=== PATIENT | male | born 1965 | race Caucasian/White ===

== ENCOUNTER 2024-12-20 21:29 | Inpatient (IN) | payer MEDICAID, SELFPAY ==
--- NOTE | 2024-12-20 21:43 | CT_ITS ---
PROCEDURE INFORMATION: Exam: CT Left Lower Extremity With Contrast, Foot Exam date and time: 12/20/2024 10:48 PM Age: 59 years old Clinical indication: Cellulitis; Calf and foot; Left; Additional info: Cellullitis, abscess TECHNIQUE: Imaging protocol: CT of the left lower extremity with intravenous contrast was performed. Exam focused on the foot. Radiation optimization: All CT scans at this facility use at least one of these dose optimization techniques: automated exposure control; mA and/or kV adjustment per patient size (includes targeted exams where dose is matched to clinical indication); or iterative reconstruction. Contrast material: ISOVUE; Contrast volume: 120 ml; Contrast route: IV; COMPARISON: CT LOWER LEG LT W CON 12/20/2024 10:48 PM FINDINGS: Bones/joints: No acute fracture or dislocation. Periosteal thickening or erosive changes. No joint effusion. Soft tissues: Open wound with complex fluid collection/developing abscess along lateral ankle extending to lateral malleolus and possibly into lateral ankle mortise, measuring 2.3 x 3.2 x 4.7 cm (series 11, image 168). Irregular subcutaneous and cutaneous stranding most pronounced in calf, ankle, foot. IMPRESSION: 1. Complex fluid collection/developing abscess along the lateral ankle extending to lateral malleolus and ankle mortise. Although no obvious CT criteria for osteomyelitis and possible septic joint, suspect low-grade osteomyelitis. 2. Diffuse calf, ankle/foot cellulitis.
--- NOTE | 2024-12-20 21:43 | CT_ITS ---
PROCEDURE INFORMATION: Exam: CT Left Lower Extremity With Contrast, Leg Exam date and time: 12/20/2024 10:48 PM Age: 59 years old Clinical indication: Cellulitis; Calf; Left; Additional info: Cellulitis, abscess lateral foot and leg TECHNIQUE: Imaging protocol: CT of the left lower extremity with intravenous contrast was performed. Exam focused on the lower leg. Radiation optimization: All CT scans at this facility use at least one of these dose optimization techniques: automated exposure control; mA and/or kV adjustment per patient size (includes targeted exams where dose is matched to clinical indication); or iterative reconstruction. Contrast material: ISOVUE; Contrast volume: 120 ml; Contrast route: IV; COMPARISON: CT FOOT LT W CON 12/20/2024 10:48 PM FINDINGS: Bones/joints: No acute fracture or dislocation. Periosteal thickening or erosive changes. No joint effusion. Soft tissues: Open wound with complex fluid collection/developing abscess along lateral ankle extending to lateral malleolus and possibly into lateral ankle mortise, measuring 2.3 x 3.2 x 4.7 cm (series 11, image 168). Irregular subcutaneous and cutaneous stranding most pronounced in calf, ankle, foot. IMPRESSION: 1. Complex fluid collection/developing abscess along the lateral ankle extending to lateral malleolus and ankle mortise. Although no obvious CT criteria for osteomyelitis and possible septic joint, suspect low-grade osteomyelitis. 2. Diffuse calf, ankle/foot cellulitis.
--- NOTE | 2024-12-20 21:46 | [facility].EDGENADL ---
Discharge Plan Disposition Patient Disposition: Admitted Clinical Impressions Clinical Impression: Sepsis, Cellulitis of left lower extremity from knee to ankle, Diabetes mellitus, new onset Discharge ED Provider: [facility] <SHIRA Quiñones - Last Filed: 12/20/24 22:03> General Chief complaint: Extremity Problem,Nontraumatic Stated complaint: AO 12/19/24 rat bite left leg,swollen,red Time Seen by Provider: 12/20/24 21:34 History of Present Illness HPI narrative: Patient presents with left lower extremity pain, redness, swelling. The swelling has been ongoing for several years however has become worse recently. Patient is under unable to identify a time when the increased swelling started. He reports yesterday he was sleeping and woke up with some bleeding and pain around his heel. He was concerned that he may have been bitten by a rat as they have a rat infestation in the home. He has not had any fevers or vomiting. MD complaint: Leg pain Onset (ago): year(s) Location: left and lower extremity Severity: severe Consistency: constant Relieving factors: none Exacerbating factors: none Associated symptoms: negative fever/chills or nausea/vomiting Related Data Allergies Allergy/AdvReac Type Severity Reaction Status Date / Time No Known Allergies Allergy Verified 12/20/24 21:54 PFS <SHIRA Quiñones - Last Filed: 12/20/24 22:03> [facility] Disclaimer: The information contained in this section may have been updated after the patient was seen, as this information can be updated by other users. Social History (Updated 12/20/24 @ 22:03 by SHIRA Quiñones) Smoking Status: Current every day smoker alcohol intake: never current occupational status: unemployed Travel in the last 8 weeks: None Have you lived/traveled outside US in past 30 days?: No Contact w/someone who lives/traveled outside US past 30 days?: No Exposure to someone with infectious disease in past 14 days?: No Do you have a fever (greater than 100.4 F or 38 C)?: No Have you tested positive for COVID-19: No Exposed to someone with COVID-19 in past 14 days?: No Do you have a sore throat?: No Do you have a cough?: No Do you have any weakness?: No Do you have any diarrhea?: No Are you experiencing any unusual bleeding?: No Do you have any muscle aches/pain?: No Do you have any abdominal pain?: No Are you experiencing loss of taste or smell?: No <SHIAR Quiñones - Last Filed: 12/20/24 22:03> ROS Obtained: Yes Systems reviewed as appropriate & no additional complaints except as documented Physical Exam <SHIRA Quiñones - Last Filed: 12/20/24 22:03> General General appearance: alert and in no apparent distress Head Head exam: atraumatic and normocephalic Eye Eye exam: Present normal appearance and EOMI Chest Chest inspection: Present symmetric chest wall rise Respiratory Respiratory exam: Present normal lung sounds bilaterally; Absent wheezes or stridor Cardiovascular Cardiovascular exam: Present regular rate and normal rhythm; Absent systolic murmur Extremities Exam Extremities exam: Present other (LLE has thickening of skin, significant edema, erythema, there is a 3 cm growth on the lateral lower leg. His lateral ankle has an area of purulent drainage and fluctuance. He has some bleeding/ opening of skin around lateral heel as well. DP pulse palpable.) Neurological Exam Neurological exam: Present alert and oriented X3 Psychiatric Psychiatric exam: Present normal affect and normal mood Skin Skin exam: Present warm, dry and intact Medical Decision Making <SHIRA Quiñones Last Filed: 12/20/24 22:03> Medical Records Screening: Per USPSTF and CDC recommendations, given the prevalence of disease in our region, it is our hospital?s policy to screen for HIV and viral Hepatitis for all patients aged 18 and over and those with ongoing risk factors. Antonio Inquiry Pt receiving controlled substance: No Vital Signs: 12/20/24 21:49 12/20/24 22:30 12/20/24 23:20 Temperature 98.3 F Temperature Source Oral Pulse Rate 107 H 111 H Pulse Rate [Radial] 115 H Respiratory Rate 16 17 15 Blood Pressure 121/79 116/66 Blood Pressure [Right Arm] 155/101 H Blood Pressure Mean Blood Pressure Mean [Right Arm] 119 Blood Pressure Position [Right Arm] Sitting 02 Sat by Pulse Oximetry 98 98 98 Oxygen Delivery Method Room Air 12/20/24 23:30 Temperature Temperature Source Pulse Rate 110 H Pulse Rate [Radial] Respiratory Rate 18 Blood Pressure 120/59 L Blood Pressure [Right Arm] Blood Pressure Mean 73 Blood Pressure Mean [Right Arm] Blood Pressure Position [Right Arm] 02 Sat by Pulse Oximetry 98 Oxygen Delivery Method Lab Data Lab Results 12/20/24 22:21: WBC 12.6 H, RBC 4.20 L, Hgb 11.8 L, Hct 36.4 L, MCV 86.7, MCH 28.1, MCHC 32.4, RDW 12.6, Plt Count 457 H, MPV 9.9, Neut % (Auto) 72.2, Lymph % (Auto) 15.7, Daniels % (Auto) 8.6, Eos % (Auto) 1.6, Baso % (Auto) 0.6, Neut # (Auto) 9.1 H, Lymph # (Auto) 2.0, Daniels # (Auto) 1.1 H, Eos # (Auto) 0.2, Baso # (Auto) 0.1, Sodium 135 L, Potassium 4.0, Chloride 99, Carbon Dioxide 19 L, Anion Gap 21.0 H, BUN 13, Creatinine 0.70, Estimated Creat Clear 99, Estimated GFR 115, Est GFR ( Amer) 140, Glucose 484 H*, Hemoglobin A1c 12.6 H, Lactate 2.2 H, Calcium 8.9, Total Bilirubin 0.4, AST 30, ALT 22, Alkaline Phosphatase 269 H, Total Protein 9.3 H, Albumin 3.0 L, Globulin 6.3 H, Albumin/Globulin Ratio 0.5 L 12/20/24 23:03: VBG pH 7.37, VBG pCO2 38.0, VBG pO2 42.7 H, VBG HCO3 21.5 L, VBG Total CO2 22.6 L, VBG O2 Saturation 77.8 H, VBG Base Excess -3.8 L, VBG Lactic Acid 3.3 H 12/20/24 22:21 12/20/24 22:21 Orders (Tests/Meds): ED MEDICATIONS Generic Name Dose Route Start Last Admin Trade Name Freq PRN Reason Stop Dose Admin Lactated Ringer's 1,850 mls @ 925 mls/hr 12/20/24 22:50 12/20/24 22:57 Lactated Ringer's 1000 Ml Bag 30 ml/kg infuse over 2 hr (1850 ml) 12/21/24 00:49 925 mls/hr IV Administration .Q2H ONE Sodium Chloride 10 ml 12/20/24 23:04 12/20/24 23:06 Sodium Chloride 0.9% 10ml Syr (Rad Only) IV 01/19/25 23:03 10 ml NEEDED PRN Administration Maintain IV Site Discontinued Medications Generic Name Dose Route Start Last Admin Trade Name Tom PRN Reason Stop Dose Admin Vancomycin HCl 1,500 mg/ 250 mls @ 125 mls/hr 12/20/24 22:12 12/20/24 22:49 Sodium Chloride IV 12/20/24 22:13 125 mls/hr ONCE ONE Administration Piperacillin Sod/Tazobactam 50 mls @ 100 mls/hr 12/20/24 22:11 12/20/24 22:27 Sod 3.375 gm/ Sodium Chloride IV 12/20/24 22:40 100 mls/hr ONCE ONE Administration Insulin Human Regular 10 unit 12/20/24 22:45 12/20/24 22:53 Insulin Human Regular 100 Units/Ml 10ml Vial IV 12/20/24 22:46 10 unit ONCE ONE Administration Iopamidol 120 ml 12/20/24 23:04 12/20/24 23:06 Iopamidol-370 (76%);100ml Bottle IV 12/20/24 23:05 120 ml ONCE ONE Administration ORDERS Category Date Time Status CT Tib/Fib LT w con Stat Cat Scan 12/20/24 21:[address] foot LT w con Stat Cat Scan 12/20/24 21:43 Taken Complete Blood Count Auto Diff Stat Lab 12/20/24 22:21 Completed Comprehensive Metabolic Panel Stat Lab 12/20/24 22:21 Completed Hemoglobin A1C Stat Lab 12/20/24 22:21 Completed Lactic Acid Stat Lab 12/20/24 22:21 Completed Blood Culture Stat Micro 12/20/24 22:21 Received Wound Culture and Gram Stain Stat Micro 12/20/24 23:57 Ordered VBG [Venous Blood Gas] Stat RT 12/20/24 23:03 Completed Medical Decision Narrative: In summary patient is a 59-year-old male who presents the emergency department for evaluation of leg pain and swelling. Patient is tachycardic and hypertensive upon arrival, afebrile. Edema, erythema and open wounds on the left lower extremity. Differential diagnosis includes cellulitis, abscess, sepsis, malignancy. Initial workup will be conducted with labs, CT lower extremity. Patient checked out to Dr. Degroot pending results. <Dmitri Degroot MD - Last Filed: 12/20/24 22:50> Vital Signs: 12/20/24 21:49 12/20/24 22:30 12/20/24 23:20 Temperature 98.3 F Temperature Source Oral Pulse Rate 107 H 111 H Pulse Rate [Radial] 115 H Respiratory Rate 16 17 15 Blood Pressure 121/79 116/66 Blood Pressure [Right Arm] 155/101 H Blood Pressure Mean Blood Pressure Mean [Right Arm] 119 Blood Pressure Position [Right Arm] Sitting 02 Sat by Pulse Oximetry 98 98 98 Oxygen Delivery Method Room Air 12/20/24 23:30 Temperature Temperature Source Pulse Rate 110 H Pulse Rate [Radial] Respiratory Rate 18 Blood Pressure 120/59 L Blood Pressure [Right Arm] Blood Pressure Mean 73 Blood Pressure Mean [Right Arm] Blood Pressure Position [Right Arm] 02 Sat by Pulse Oximetry 98 Oxygen Delivery Method Lab Data Lab Results 12/20/24 22:21: WBC 12.6 H, RBC 4.20 L, Hgb 11.8 L, Hct 36.4 L, MCV 86.7, MCH 28.1, MCHC 32.4, RDW 12.6, Plt Count 457 H, MPV 9.9, Neut % (Auto) 72.2, Lymph % (Auto) 15.7, Daniels % (Auto) 8.6, Eos % (Auto) 1.6, Baso % (Auto) 0.6, Neut # (Auto) 9.1 H, Lymph # (Auto) 2.0, Daniels # (Auto) 1.1 H, Eos # (Auto) 0.2, Baso # (Auto) 0.1, Sodium 135 L, Potassium 4.0, Chloride 99, Carbon Dioxide 19 L, Anion Gap 21.0 H, BUN 13, Creatinine 0.70, Estimated Creat Clear 99, Estimated GFR 115, Est GFR ( Amer) 140, Glucose 484 H*, Hemoglobin A1c 12.6 H, Lactate 2.2 H, Calcium 8.9, Total Bilirubin 0.4, AST 30, ALT 22, Alkaline Phosphatase 269 H, Total Protein 9.3 H, Albumin 3.0 L, Globulin 6.3 H, Albumin/Globulin Ratio 0.5 L 12/20/24 23:03: VBG pH 7.37, VBG pCO2 38.0, VBG pO2 42.7 H, VBG HCO3 21.5 L, VBG Total CO2 22.6 L, VBG O2 Saturation 77.8 H, VBG Base Excess -3.8 L, VBG Lactic Acid 3.3 H Orders (Tests/Meds): ED MEDICATIONS Generic Name Dose Route Start Last Admin Trade Name Tom PRN Reason Stop Dose Admin Lactated Ringer's 1,850 mls @ 925 mls/hr 12/20/24 22:50 12/20/24 22:57 Lactated Ringer's 1000 Ml Bag 30 ml/kg infuse over 2 hr (1850 ml) 12/21/24 00:49 925 mls/hr IV Administration .Q2H ONE Sodium Chloride 10 ml 12/20/24 23:04 12/20/24 23:06 Sodium Chloride 0.9% 10ml Syr (Rad Only) IV 01/19/25 23:03 10 ml NEEDED PRN Administration Maintain IV Site Discontinued Medications Generic Name Dose Route Start Last Admin Trade Name Freleo PRN Reason Stop Dose Admin Vancomycin HCl 1,500 mg/ 250 mls @ 125 mls/hr 12/20/24 22:12 12/20/24 22:49 Sodium Chloride IV 12/20/24 22:13 125 mls/hr ONCE ONE Administration Piperacillin Sod/Tazobactam 50 mls @ 100 mls/hr 12/20/24 22:11 12/20/24 22:27 Sod 3.375 gm/ Sodium Chloride IV 12/20/24 22:40 100 mls/hr ONCE ONE Administration Insulin Human Regular 10 unit 12/20/24 22:45 12/20/24 22:53 Insulin Human Regular 100 Units/Ml 10ml Vial IV 12/20/24 22:46 10 unit ONCE ONE Administration Iopamidol 120 ml 12/20/24 23:04 12/20/24 23:06 Iopamidol-370 (76%);100ml Bottle IV 12/20/24 23:05 120 ml ONCE ONE Administration ORDERS Category Date Time Status CT Tib/Fib LT w con Stat Cat Scan 12/20/24 21:[address] foot LT w con Stat Cat Scan 12/20/24 21:43 Taken Complete Blood Count Auto Diff Stat Lab 12/20/24 22:21 Completed Comprehensive Metabolic Panel Stat Lab 12/20/24 22:21 Completed Hemoglobin A1C Stat Lab 12/20/24 22:21 Completed Lactic Acid Stat Lab 12/20/24 22:21 Completed Blood Culture Stat Micro 12/20/24 22:21 Received Wound Culture and Gram Stain Stat Micro 12/20/24 23:57 Ordered VBG [Venous Blood Gas] Stat RT 12/20/24 23:03 Completed Medical Decision Narrative: In summary patient is a 59-year-old male who presents the emergency department for evaluation of leg pain and swelling. Patient is tachycardic and hypertensive upon arrival, afebrile. Edema, erythema and open wounds on the left lower extremity. Differential diagnosis includes cellulitis, abscess, sepsis, malignancy. Initial workup will be conducted with labs, CT lower extremity. Patient checked out to Dr. Degroot pending results. I independently examined and interviewed patient. He states that left lower extremity swelling has been getting worse over the past couple of years. States that today, 12/20, he noticed that he had some discomfort in the lateral aspect of his ankle and realized it was draining. Came in for further evaluation. No fevers, chills, nausea, vomiting, but left lower extremity has been red, swollen for years. No changes in that. States that he has no medical problems. No medication allergies. History obtained with patient and family at bedside. On arrival, chronically ill-appearing. Left lower extremity is very noticeably larger than the right. Chronic overlying edematous and woody skin changes. Nontender, patient does have a dorsalis pedis pulse and range of motion of his ankle and digits. Minimal sensation. On the lateral aspect of his malleolus, he does have a draining ulcer but appears to have straw-colored changes with application of pressure with no obvious, ramo purulence. Differential includes cellulitis, abscess, sepsis, malignancy, deep space infection, diabetic wound among others. Workup including labs and imaging was initiated. Only lab to return prior to handoff was patient's chemistry. He has an anion gap of 21, glucose of 484 and lactate of 2.2. Patient given ideal body weight sepsis bolus, started on vancomycin and Zosyn. Also given 10 units of insulin IV. Prior to rest of workup, care handed off to oncoming physician. MD Zane <[facility] MD - Last Filed: 12/21/24 00:27> Vital Signs: 12/20/24 21:49 12/20/24 22:30 12/20/24 23:20 Temperature 98.3 F Temperature Source Oral Pulse Rate 107 H 111 H Pulse Rate [Radial] 115 H Respiratory Rate 16 17 15 Blood Pressure 121/79 116/66 Blood Pressure [Right Arm] 155/101 H Blood Pressure Mean Blood Pressure Mean [Right Arm] 119 Blood Pressure Position [Right Arm] Sitting 02 Sat by Pulse Oximetry 98 98 98 Oxygen Delivery Method Room Air 12/20/24 23:30 Temperature Temperature Source Pulse Rate 110 H Pulse Rate [Radial] Respiratory Rate 18 Blood Pressure 120/59 L Blood Pressure [Right Arm] Blood Pressure Mean 73 Blood Pressure Mean [Right Arm] Blood Pressure Position [Right Arm] 02 Sat by Pulse Oximetry 98 Oxygen Delivery Method Lab Data Lab Results 12/20/24 22:21: WBC 12.6 H, RBC 4.20 L, Hgb 11.8 L, Hct 36.4 L, MCV 86.7, MCH 28.1, MCHC 32.4, RDW 12.6, Plt Count 457 H, MPV 9.9, Neut % (Auto) 72.2, Lymph % (Auto) 15.7, Daniels % (Auto) 8.6, Eos % (Auto) 1.6, Baso % (Auto) 0.6, Neut # (Auto) 9.1 H, Lymph # (Auto) 2.0, Daniels # (Auto) 1.1 H, Eos # (Auto) 0.2, Baso # (Auto) 0.1, Sodium 135 L, Potassium 4.0, Chloride 99, Carbon Dioxide 19 L, Anion Gap 21.0 H, BUN 13, Creatinine 0.70, Estimated Creat Clear 99, Estimated GFR 115, Est GFR ( Amer) 140, Glucose 484 H*, Hemoglobin A1c 12.6 H, Lactate 2.2 H, Calcium 8.9, Total Bilirubin 0.4, AST 30, ALT 22, Alkaline Phosphatase 269 H, Total Protein 9.3 H, Albumin 3.0 L, Globulin 6.3 H, Albumin/Globulin Ratio 0.5 L 12/20/24 23:03: VBG pH 7.37, VBG pCO2 38.0, VBG pO2 42.7 H, VBG HCO3 21.5 L, VBG Total CO2 22.6 L, VBG O2 Saturation 77.8 H, VBG Base Excess -3.8 L, VBG Lactic Acid 3.3 H Orders (Tests/Meds): ED MEDICATIONS Generic Name Dose Route Start Last Admin Trade Name Freleo PRN Reason Stop Dose Admin Lactated Ringer's 1,850 mls @ 925 mls/hr 12/20/24 22:50 12/20/24 22:57 Lactated Ringer's 1000 Ml Bag 30 ml/kg infuse over 2 hr (1850 ml) 12/21/24 00:49 925 mls/hr IV Administration .Q2H ONE Sodium Chloride 10 ml 12/20/24 23:04 12/20/24 23:06 Sodium Chloride 0.9% 10ml Syr (Rad Only) IV 01/19/25 23:03 10 ml NEEDED PRN Administration Maintain IV Site Discontinued Medications Generic Name Dose Route Start Last Admin Trade Name Tom PRN Reason Stop Dose Admin Vancomycin HCl 1,500 mg/ 250 mls @ 125 mls/hr 12/20/24 22:12 12/20/24 22:49 Sodium Chloride IV 12/20/24 22:13 125 mls/hr ONCE ONE Administration Piperacillin Sod/Tazobactam 50 mls @ 100 mls/hr 12/20/24 22:11 12/20/24 22:27 Sod 3.375 gm/ Sodium Chloride IV 12/20/24 22:40 100 mls/hr ONCE ONE Administration Insulin Human Regular 10 unit 12/20/24 22:45 12/20/24 22:53 Insulin Human Regular 100 Units/Ml 10ml Vial IV 12/20/24 22:46 10 unit ONCE ONE Administration Iopamidol 120 ml 12/20/24 23:04 12/20/24 23:06 Iopamidol-370 (76%);100ml Bottle IV 12/20/24 23:05 120 ml ONCE ONE Administration ORDERS Category Date Time Status CT Tib/Fib LT w con Stat Cat Scan 12/20/24 21:[address] foot LT w con Stat Cat Scan 12/20/24 21:43 Taken Complete Blood Count Auto Diff Stat Lab 12/20/24 22:21 Completed Comprehensive Metabolic Panel Stat Lab 12/20/24 22:21 Completed Hemoglobin A1C Stat Lab 12/20/24 22:21 Completed Lactic Acid Stat Lab 12/20/24 22:21 Completed Blood Culture Stat Micro 12/20/24 22:21 Received Wound Culture and Gram Stain Stat Micro 12/20/24 23:57 Ordered VBG [Venous Blood Gas] Stat RT 12/20/24 23:03 Completed Medical Decision Narrative: In summary patient is a 59-year-old male who presents the emergency department for evaluation of leg pain and swelling. Patient is tachycardic and hypertensive upon arrival, afebrile. Edema, erythema and open wounds on the left lower extremity. Differential diagnosis includes cellulitis, abscess, sepsis, malignancy. Initial workup will be conducted with labs, CT lower extremity. Patient checked out to Dr. Degroot pending results. I independently examined and interviewed patient. He states that left lower extremity swelling has been getting worse over the past couple of years. States that today, 12/20, he noticed that he had some discomfort in the lateral aspect of his ankle and realized it was draining. Came in for further evaluation. No fevers, chills, nausea, vomiting, but left lower extremity has been red, swollen for years. No changes in that. States that he has no medical problems. No medication allergies. History obtained with patient and family at bedside. On arrival, chronically ill-appearing. Left lower extremity is very noticeably larger than the right. Chronic overlying edematous and woody skin changes. Nontender, patient does have a dorsalis pedis pulse and range of motion of his ankle and digits. Minimal sensation. On the lateral aspect of his malleolus, he does have a draining ulcer but appears to have straw-colored changes with application of pressure with no obvious, ramo purulence. Differential includes cellulitis, abscess, sepsis, malignancy, deep space infection, diabetic wound among others. Workup including labs and imaging was initiated. Only lab to return prior to handoff was patient's chemistry. He has an anion gap of 21, glucose of 484 and lactate of 2.2. Patient given ideal body weight sepsis bolus, started on vancomycin and Zosyn. Also given 10 units of insulin IV. Prior to rest of workup, care handed off to oncoming physician. MD Maine Degroot MD: I assumed care of the patient at the time of handoff from the prior provider. On reassessment patient remains hemodynamically stable, mildly tachycardic. Blood gas shows no acidosis to suggest DKA. Blood sugar in the 200s after [address] imaging was independently interpreted by me and shows significant edema but does not show any gas to suggest necrotizing infection. No obvious bony cortical defect to suggest osteomyelitis. I considered transfer, but given patient does not require emergent surgery for necrotizing infection I think patient can be managed here. Interactive discussion was had with the hospitalist on-call for admission. I was consulted by the YARIEL, and we discussed the complexity of the problems being addressed. I approved the treatment and management plan for this patient?s care in the Emergency Department, thus performing a substantive portion of the medical decision making. Jam Grove MD Critical Care <SHIRA Quiñones - Last Filed: 12/20/24 22:03> Critical Care Time Critical Care Time: No
[2024-12-20 21:49] VITALS: BP 155/101; PULSE 115; RESP 16; TEMP 36.8; O2SAT 98; BMI 49.9
[2024-12-20] MEDS: PIPERACILLIN/TAZO 3.375 GM in 0.9 % SODIUM CHLORIDE 50 ML IV (22:27)
[2024-12-20 22:30] VITALS: BP 121/79; PULSE 107; RESP 17; O2SAT 98
[2024-12-20 22:34] LABS: Chloride 99 mmol/L (98-107); Sodium 135 mmol/L (136-145)
[2024-12-20 22:37] LABS: Alanine Aminotransferase 22 U/L (12-78); Albumin/Globulin Ratio 0.5 (1.1-1.8); Alkaline Phosphatase 269 U/L (38-126); Aspartate Amino Transferase 30 U/L (17-59); Bilirubin,Total 0.4 mg/dl (0.2-1.3); Blood Urea Nitrogen 13 mg/dl (9-20); Calcium 8.9 mg/dl (8.4-10.2); Carbon Dioxide 19 mmol/L (22.0-30.0); Creatinine Clearance Estimated 99 mL/min (50-200); Estimated Glomerular Filt Rate 115 ml/min (>60); GFR (African American) 140 ML/MIN (>60); Globulin 6.3 g/dL (1.3-3.2); Total Protein,Serum 9.3 g/dl (6.3-8.2)
[2024-12-20 22:43] LABS: Lactic Acid 2.2 mmol/L (0.7-2.1)
[2024-12-20 22:44] LABS: Glucose 484 mg/dl (74-100)
--- NOTE | 2024-12-20 22:44 | PC.NURSE ---
Critical glucose result received from lab of 484. aware
[2024-12-20 22:48] LABS: Basophils # 0.1 K/mm3 (0-0.2); Basophils % 0.6 % (0.1-2.0); Eosinophils # 0.2 K/mm3 (0.0-0.4); Eosinophils % 1.6 % (0.1-12.0); Hematocrit 36.4 % (42.0-52.0); Hemoglobin 11.8 g/dL (14.1-18.0); Lymphocytes % 15.7 % (10-50); Mean Corpuscular HGB Conc 32.4 g/dL (31.8-35.4); Mean Corpuscular Hemoglobin 28.1 pg (27.0-31.2); Mean Corpuscular Volume 86.7 fl (80-94); Mean Platelet Volume 9.9 fl (7.4-10.4); Monocytes # 1.1 K/mm3 (0.1-1.0); Monocytes % 8.6 % (1.7-9.3); Neutrophils # 9.1 K/mm3 (1.8-7.8); Neutrophils % 72.2 % (37.0-80.0); Nucleated Red Blood Cells # 0 10^3/uL; Nucleated Red Blood Cells % 0 %; Platelet Count 457 K/mm3 (142-424); Red Cell Distribution Width 12.6 % (11.5-17.5); Red Cell Distribution Width-SD 39.8 fL; White Blood Count 12.6 K/mm3 (4.8-10.8)
[2024-12-20] MEDS: VANCOMYCIN HCL 1,500 MG in 0.9 % SODIUM CHLORIDE 250 ML 125 MG IV (22:49)
[2024-12-20] MEDS: INSULIN HUMAN REGULAR 100 UNITS/ML 10ML VIAL 10 UNIT IV (22:53)
[2024-12-20] MEDS: LACTATED RINGERS 1000ML 1,850 ML 925 ML IV (22:57)
[2024-12-20 23:03] LABS: Hemoglobin A1C 12.6 % (4.0-6.0)
[2024-12-20] MEDS: SODIUM CHLORIDE 0.9% 10ML SYR (RAD ONLY) 10 ML IV (23:06)
[2024-12-20] MEDS: IOPAMIDOL-370 (76%);100ML BOTTLE 120 ML IV (23:06)
[2024-12-20 23:20] VITALS: BP 116/66; PULSE 111; RESP 15; O2SAT 98
[2024-12-20 23:30] VITALS: BP 120/59; PULSE 110; RESP 18; O2SAT 98
[2024-12-20 23:34] LABS: VBG Base Excess -3.8 mmol/L (-2.4-2.3); VBG HCO3 21.5 mmol/L (23-30); VBG Oxygen Saturation 77.8 % (50-70); VBG PH 7.37 mmol/L (7.31-7.41); VBG PO2 42.7 mmol/L (28-40); VBG Total CO2 22.6 mmol/L (23-27)
[2024-12-20 23:35] LABS: Lactate Venous 3.3 mmol/L (0.4-2.0)
[2024-12-21] VITALS (22 sets, daily range): BP systolic 104–144; BP diastolic 59–98; PULSE 80–104; RESP 14–24; TEMP 36.7–37.6; O2SAT 91–100; BMI 35.9
--- NOTE | 2024-12-21 00:26 | PC.NURSE ---
Late entry: [id number] Attempt to call report, this RN was told to call back after the know wether or not to place patient in med-surg or step down
[2024-12-21 00:27] LABS: Acetone, Serum (Rapid) Small (None Detect)
--- NOTE | 2024-12-21 00:28 | PC.NURSE ---
Report given to Gasper on the floor. Reports that no admissions order have been plaved and they cannot come get patient until that order is placed.
--- NOTE | 2024-12-21 00:56 | PC.NURSE ---
Patient arrived to floor via stretcher from ED at 00:56.
[2024-12-21 01:30] LABS: Microscopic, Urine URINE MICROSCOPIC (MICROSCOPIC)
[2024-12-21 01:33] LABS: Appearance,Urine CLEAR (Clear); Blood, Urine 1+ (Negative); Color,Urine YELLOW (Yellow); Glucose,Urine (UA) 3+ (Negative); Ketones,Urine 2+ (Negative); Leukocyte Esterase,Urine Negative (Negative); Nitrate,Urine Negative (Negative); PH,Urine 5.5 (5.0-8.5); Protein,Urine TRACE (Negative); Urobilinogen,Urine 0.2 EU/dl (0.2)
[2024-12-21] MEDS: LACTATED RINGERS 1000ML 1,000 ML 100 ML IV ×2 (01:34→18:51)
[2024-12-21] MEDS: humaLOG 100 UNITS/ML 10ML VIAL (SSI) SUBCUT ×4 (01:34→20:30)
[2024-12-21 01:38] LABS: Bilirubin,Urine 1+ (Negative)
[2024-12-21 01:47] LABS: POC Glucose,Bedside 359 (70-110)
[2024-12-21 01:49] LABS: Bacteria,Urine Trace /lpf; Squamous Epithelial Cell,Urine Occasional #/hpf (0-5)
[2024-12-21 02:26] LABS: Reflex Lactic Add Lactic Reflex
[2024-12-21 02:52] LABS: Lactic Acid Follow Up (RFLX 1) 1.9 mmol/L (0.7-2.1)
--- NOTE | 2024-12-21 02:58 | P.HP_ITS ---
<Statement entered by Kevin Lund MD - 12/21/24 11:42> Personally evaluated patient and agree with the plan of care outlined by the METEOROLOGICAL TECHNICIAN. History of Present Illness *Admission Date: 12/21/24 *Reason for visit:: Lower extremity wound *History of present illness: A 59-year-old male with past medical history of hypertension, has not seen a physician since 2016, came to the emergency department for evaluation of left lower extremity pain and swelling, possibly triggered by a rat bite. The patient reports that left lower extremity swelling has been progressively worsening over the past couple of years with scaling skin texture. He states that today, December 20, he noticed discomfort in the lateral aspect of his left ankle and observed drainage from the area, prompting further evaluation. He notes the swelling and redness in his left leg have been chronic for years, with no recent changes in these findings, but believes the current draining ulcer may be related to a rat bite as home currently has rodent issue but does not recall being bitten. He denies fevers, chills, nausea, or vomiting. He reports no medication allergies. The history was obtained through interactive discussion with the patient and family at bedside, and the patient is deemed reliable. On examination, the patient is mildly tachycardic with a rate of 104, BP of 125/76, afebrile, alert, and oriented. Vital signs are not fully specified but indicate tachycardia and hypertension. Physical exam reveals a chronically ill- appearing male with a left lower extremity significantly larger than the right, exhibiting chronic overlying edematous and woody skin changes. The left leg is nontender, with a palpable dorsalis pedis pulse, intact range of motion in the ankle and digits, and minimal sensation. On the lateral malleolus, there is a draining ulcer with straw-colored fluid upon pressure, without obvious ramo purulence. The right lower extremity is unremarkable, and no other focal findings are noted. Diagnostic workup includes labs and a planned CT of the lower extremity, though only the chemistry panel returned prior to handoff. Labs are significant for hyperglycemia (glucose 484 mg/dL), elevated anion gap (21), low carbon dioxide (19 mmol/L), mildly elevated lactate (2.2 mmol/L), low albumin (3.0 g/dL), elevated total protein (9.3 g/dL), elevated globulin (6.3 g/dL), and elevated alkaline phosphatase (269 U/L). Renal function is normal (creatinine 0.70 mg/dL, GFR 115 mL/min/1.73m?). HgbA1c 12.6. Mild leukocytosis. Urinalysis pending Treatments implemented in the emergency department include an ideal body weight- based sepsis fluid bolus with normal saline, initiation of intravenous vancomycin and piperacillin-tazobactam (Zosyn) for suspected infection, and 10 units of intravenous insulin to address hyperglycemia. [facility] Disclaimer: The information contained in this section may have been updated after the patient was seen, as this information can be updated by other users. Family History Mother Family history of cancer Family history of myocardial infarction Father Family history of stroke Social History Smoking Status: Current every day smoker alcohol intake: never current occupational status: unemployed Travel in the last 8 weeks: None Have you lived/traveled outside [place] in past 30 days?: No Contact w/someone who lives/traveled outside US past 30 days?: No Exposure to someone with infectious disease in past 14 days?: No Do you have a fever (greater than 100.4 F or 38 C)?: No Have you tested positive for COVID-19: No Exposed to someone with COVID-19 in past 14 days?: No Do you have a sore throat?: No Do you have a cough?: No Do you have any weakness?: No Do you have any diarrhea?: No Are you experiencing any unusual bleeding?: No Do you have any muscle aches/pain?: No Do you have any abdominal pain?: No Are you experiencing loss of taste or smell?: No Other Medical History Have you received the Flu Vaccine for this season: No (Declines) Have you received the Pneumonia Vaccine: No (Declines) Review of Systems Review of Systems Review of systems (narrative): 13 point review systems negative except as listed in HPI Meds Home Medications and Allergies New Prescriptions to Start Prescriptions: Allergies Allergy/AdvReac Type Severity Reaction Status Date / Time No Known Allergies Allergy Verified 12/20/24 21:54 Exam Data for Last 24 hours Vital signs and Labs for Last 24 Hours: Temp Pulse Resp BP Pulse Ox O2 Del Method 98.3 F 104 H 20 125/76 100 Room Air 12/21/24 01:00 12/21/24 01:00 12/21/24 01:00 12/21/24 01:00 12/21/24 01:00 12/21/24 01:00 Laboratory Results - last 24 hr 12/20/24 22:21: WBC 12.6 H, RBC 4.20 L, Hgb 11.8 L, Hct 36.4 L, MCV 86.7, MCH 28.1, MCHC 32.4, RDW 12.6, Plt Count 457 H, MPV 9.9, Neut % (Auto) 72.2, Lymph % (Auto) 15.7, [place] % (Auto) 8.6, Eos % (Auto) 1.6, Baso % (Auto) 0.6, Neut # (Auto) 9.1 H, Lymph # (Auto) 2.0, [place] # (Auto) 1.1 H, Eos # (Auto) 0.2, Baso # (Auto) 0.1, Sodium 135 L, Potassium 4.0, Chloride 99, Carbon Dioxide 19 L, Anion Gap 21.0 H, BUN 13, Creatinine 0.70, Estimated Creat Clear 99, Estimated GFR 115, Est GFR ( Amer) 140, Glucose 484 H*, Hemoglobin A1c 12.6 H, Lactate 2.2 H, Calcium 8.9, Total Bilirubin 0.4, AST 30, ALT 22, Alkaline Phosphatase 269 H, Total Protein 9.3 H, Albumin 3.0 L, Globulin 6.3 H, Albumin/Globulin Ratio 0.5 L 12/20/24 23:03: VBG pH 7.37, VBG pCO2 38.0, VBG pO2 42.7 H, VBG HCO3 21.5 L, VBG Total CO2 22.6 L, VBG O2 Saturation 77.8 H, VBG Base Excess -3.8 L, VBG Lactic Acid 3.3 H 12/21/24 01:20: Urine Color Yellow, Urine Appearance Clear, Urine pH 5.5, Ur Specific [place] 1.010, Urine Protein Trace, Urine Glucose (UA) 3+, Urine Ketones 2+, Urine Blood 1+ A, Urine Nitrate Negative, Urine Bilirubin 1+ A, Urine Urobilinogen 0.2, Ur Leukocyte Esterase Negative, Urine RBC 3-5, Urine WBC None, Ur Squamous Epith Cells Occasional, Urine Bacteria Trace 12/21/24 01:23: POC Glucose 359 H* 12/21/24 02:38: Lactate 1.9 12/21/24 : Acetone Level Small I & O for Last 24 hours: Intake & Output 12/18/24 12/19/24 12/20/24 12/21/24 23:59 23:59 23:59 23:59 Output Total 600 / 600 Balance -600 / -600 Weight 136.078 kg 97.795 kg Microbiology Reports for the Last 24 Hours: Microbiology 12/20/24 01:12 Leg,Left Gram Stain - Final Constitutional Constitutional: no acute distress, morbidly obese, chronically ill appearing and disheveled *Routine HEENT Exam Head: Present normocephalic Eye: Present EOMI and PERRL ENT: Present mucous membranes moist *Routine Neck Exam Neck: Present supple; Absent lymphadenopathy *Routine Respiratory Exam Respiratory: Present CTA bilaterally *Routine Cardiovascular Exam Cardiovascular: Present RRR *Routine Abdominal Exam Abdominal: Present soft and normoactive bowel sounds; Absent tenderness *Routine Rectal Exam Rectal:: deferred *Routine Genitalia Exam Genitalia:: deferred *Routine Extremities Exam Extremities: Present edema (Left lower extremity); Absent cyanosis or clubbing *Routine Skin Exam Skin: Present warm, wounds (Left malleolus 2 x 2) and cracked; Absent rash *Routine Neurological Exam Neurological: Present alert and oriented X3 Assessment and Plan *Assessment and plan (1) Diabetes mellitus, new onset: Status: Acute Category: Medical Code(s): E11.9 - Type 2 diabetes mellitus without complications (2) Cellulitis of left lower extremity from knee to ankle: Status: Acute Category: Medical Code(s): L03.116 - Cellulitis of left lower limb (3) Sepsis: Status: Acute Qualifiers: Sepsis acute organ dysfunction status: with acute organ dysfunction Severe sepsis shock status: without septic shock Category: Medical Code(s): A41.9 - Sepsis, unspecified organism (4) Obesity: Status: Acute Category: Medical Code(s): E66.9 - Obesity, unspecified (5) Poor dentition: Status: Acute Category: Medical Code(s): K08.9 - Disorder of teeth and supporting structures, unspecified Plan * Left Lower Extremity Abscess and Cellulitis, Possible Rat Bite-Related Infection: New draining ulcer on the lateral malleolus with straw-colored fluid, chronic edema, and CT showing a complex fluid collection/developing abscess extending to the lateral malleolus/ankle mortise and diffuse calf/ankle/foot cellulitis, allegedly triggered by a rat bite, raising concern for Streptobacillus moniliformis, Spirillum minus, or polymicrobial infection. * Continue vancomycin 1 g IV every 12 hours and piperacillin-tazobactam (Zosyn) 3.375 g IV every 6 hours for broad-spectrum coverage of cellulitis and abscess, including gram-positive (e.g., MRSA) and gram-negative organisms. * Consider doxycycline 100 mg IV every 12 hours to cover rat-bite fever pathogens if score suggests * Obtain wound culture from ulcer drainage * Consult surgery orthopedic for evaluation of abscess and possible incision/drainage, given CT findings. * Elevate left leg to reduce edema; apply non-adherent dressing to ulcer, changing every 12 hours. * Monitor for systemic symptoms (fever, arthralgias, rash) suggestive of rat- bite fever * Suspected Low-Grade Osteomyelitis: CT suggesting possible low-grade osteomyelitis in the lateral malleolus/ankle mortise, despite no definitive criteria, in the context of a chronic ulcer and abscess. * Consult orthopedic surgery as above for possible bone biopsy or debridement if osteomyelitis confirmed. * Order MRI lower extremity with contrast to further evaluate for osteomyelitis or septic joint, pending surgical input. * Continue vancomycin and Zosyn as above, adequate for early osteomyelitis coverage. * Monitor for worsening pain, swelling, or joint limitation every 8 hours. * Hyperglycemia (Glucose 484 mg/dL) with Anion Gap Acidosis: Severe hyperglycemia with anion gap (21), low bicarbonate (21.5 mmol/L), 3+ glucose and 2+ ketones on urinalysis, and negative serum acetone, not suggestive of extreme ketoacidosis * Initiate sliding scale insulin * Monitor glucose every 6 hours * Consult endocrinology for inpatient diabetes management and discharge regimen (likely basal-bolus insulin given severity). * Continue IV fluid hydration * Educate patient on potential diabetes diagnosis and need for ongoing monitoring. * Sepsis (Lactate 3.3 mmol/L, Leukocytosis, Tachycardia): Elevated lactate, WBC 12.6 x10?/?L (neutrophils 9.1 x10?/?L), and tachycardia with confirmed infection (abscess, cellulitis), meeting sepsis criteria, though afebrile and stable post-fluid bolus. * Continue vancomycin, Zosyn, and doxycycline as above for infectious source (abscess, cellulitis, possible osteomyelitis). * Monitor lactate every 4?6 hours until <2 mmol/L; administer additional 30 mL/kg normal saline bolus if lactate remains >3 mmol/L. * Check blood cultures (drawn prior to antibiotics) for growth, including evaluation for Streptobacillus if rat-bite fever suspected. * Monitor vital signs every 4 hours, including heart rate and blood pressure. * Admit to hospital medicine service with telemetry for sepsis and infection monitoring. * Chronic Venous Insufficiency (Presumed): Chronic left leg edema with woody skin changes and ulcer, likely due to venous stasis given years-long history, now complicated by infection. * Order venous Doppler ultrasound of left lower extremity to evaluate for chronic venous insufficiency or thrombosis, despite palpable pulses. * Consider consult vascular surgery for chronic edema and ulcer management in the context of venous disease. * Initiate compression therapy (e.g., multilayer wrap) once infection is controlled, per wound care guidance. * Monitor for worsening edema or new ulcers during admission. * Elevated Globulin and Alkaline Phosphatase: Elevated globulin (6.3 g/dL), low albumin/globulin ratio (0.5), and alkaline phosphatase (268 U/L), suggesting possible chronic inflammatory, infectious (e.g., chronic osteomyelitis), or neoplastic process * Recheck liver function tests in 24 hours to trend alkaline phosphatase; consider liver ultrasound if rising or infection ruled out. * Monitor for systemic symptoms * Dehydration and Electrolyte Abnormalities: Low carbon dioxide (19 mmol/L), mild acidosis (bicarbonate 21.5 mmol/L), and elevated lactate, likely due to hyperglycemia, sepsis, and chronic edema-related fluid shifts, with normal renal function (creatinine 0.70 mg/dL). * Continue fluid as above to correct dehydration and acidosis. * Recheck comprehensive metabolic panel and VBG in 12 hours to monitor CO2, anion gap, and glucose. * Monitor urine output every 4 hours, targeting >0.5 mL/kg/hour. Additional Orders: * Admit to hospital medicine service (consider ICU if DKA confirmed or lactate rises) for sepsis, hyperglycemia, and infection management. * Maintain continuous telemetry and pulse oximetry due to tachycardia and sepsis risk. * Check vital signs every 4 hours, including [id number] glucose. * Offer acetaminophen 650 mg oral every 6 hours as needed for pain, avoiding NSAIDs due to renal and ulcer concerns. * Educate patient and family on infection, potential diabetes, and rat bite complications. * Consult medical social worker, PT eval and wound, orthopedic surgery if osteomyelitis confirmed
[2024-12-21] MEDS: ACETAMINOPHEN 325MG TAB 650 MG PO (05:10)
[2024-12-21] MEDS: PIPERCILLIN/TAZO 3.375 GM in 0.9 % SODIUM CHLORIDE 50 ML IV (05:19)
[2024-12-21 05:40] LABS: POC Glucose,Bedside 194 (70-110)
[2024-12-21 06:34] LABS: Basophils # 0.1 K/mm3 (0-0.2); Basophils % 0.5 % (0.1-2.0); Eosinophils # 0.2 K/mm3 (0.0-0.4); Eosinophils % 1.6 % (0.1-12.0); Hematocrit 30.3 % (42.0-52.0); Lymphocytes # 2.3 K/mm3 (0.7-4.5); Lymphocytes % 19.1 % (10-50); Mean Corpuscular HGB Conc 33.3 g/dL (31.8-35.4); Mean Corpuscular Hemoglobin 28.7 pg (27.0-31.2); Mean Corpuscular Volume 86.1 fl (80-94); Monocytes # 1.1 K/mm3 (0.1-1.0); Monocytes % 9.2 % (1.7-9.3); Neutrophils # 8.3 K/mm3 (1.8-7.8); Neutrophils % 68.5 % (37.0-80.0); Nucleated Red Blood Cells # 0 10^3/uL; Nucleated Red Blood Cells % 0 %; Platelet Count 400 K/mm3 (142-424); Red Blood Count 3.52 M/mm3 (4.60-6.20); Red Cell Distribution Width 12.7 % (11.5-17.5); Red Cell Distribution Width-SD 39.6 fL; White Blood Count 12.2 K/mm3 (4.8-10.8)
[2024-12-21 06:58] LABS: Chloride 103 mmol/L (98-107); Potassium 3.4 mmoL/L (3.5-5.1); Sodium 136 mmol/L (136-145)
[2024-12-21 07:01] LABS: Anion Gap 13.4 mEq/L (5-15); Blood Urea Nitrogen 10 mg/dl (9-20); Carbon Dioxide 23 mmol/L (22.0-30.0); Creatinine Clearance Estimated 275 mL/min (50-200); Estimated Glomerular Filt Rate 220 ml/min (>60); GFR (African American) 266 ML/MIN (>60); Phosphorous 2.6 mg/dl (2.5-4.5)
[2024-12-21 07:02] LABS: Glucose 183 mg/dl (74-100); Magnesium 1.3 mg/dl (1.6-2.3)
--- NOTE | 2024-12-21 07:23 | EXP.PHA.CONS ---
Pharmacy Consult Date: 12/21/24 Time: 07:23 Referring provider: DR. WELLER Reason for Consult:: VANCOMYCIN DOSING Allergies Allergy/AdvReac Type Severity Reaction Status Date / Time No Known Allergies Allergy Verified 12/20/24 21:54 Home Medications ?Medication ?Instructions ?Recorded ?Confirmed ?Type No Known Home Medications 12/21/24 12/21/24 History New Prescriptions to Start Prescriptions: Height: 1.65 m Weight: 97.795 kg Laboratory Results:: Laboratory Results - last 24 hr 12/20/24 22:21: WBC 12.6 H, RBC 4.20 L, Hgb 11.8 L, Hct 36.4 L, MCV 86.7, MCH 28.1, MCHC 32.4, RDW 12.6, Plt Count 457 H, MPV 9.9, Neut % (Auto) 72.2, Lymph % (Auto) 15.7, [place] % (Auto) 8.6, Eos % (Auto) 1.6, Baso % (Auto) 0.6, Neut # (Auto) 9.1 H, Lymph # (Auto) 2.0, [place] # (Auto) 1.1 H, Eos # (Auto) 0.2, Baso # (Auto) 0.1, Sodium 135 L, Potassium 4.0, Chloride 99, Carbon Dioxide 19 L, Anion Gap 21.0 H, BUN 13, Creatinine 0.70, Estimated Creat Clear 99, Estimated GFR 115, Est GFR ( Amer) 140, Glucose 484 H*, Hemoglobin A1c 12.6 H, Lactate 2.2 H, Calcium 8.9, Total Bilirubin 0.4, AST 30, ALT 22, Alkaline Phosphatase 269 H, Total Protein 9.3 H, Albumin 3.0 L, Globulin 6.3 H, Albumin/Globulin Ratio 0.5 L 12/20/24 23:03: VBG pH 7.37, VBG pCO2 38.0, VBG pO2 42.7 H, VBG HCO3 21.5 L, VBG Total CO2 22.6 L, VBG O2 Saturation 77.8 H, VBG Base Excess -3.8 L, VBG Lactic Acid 3.3 H 12/21/24 01:20: Urine Color Yellow, Urine Appearance Clear, Urine pH 5.5, Ur Specific [place] 1.010, Urine Protein Trace, Urine Glucose (UA) 3+, Urine Ketones 2+, Urine Blood 1+ A, Urine Nitrate Negative, Urine Bilirubin 1+ A, Urine Urobilinogen 0.2, Ur Leukocyte Esterase Negative, Urine RBC 3-5, Urine WBC None, Ur Squamous Epith Cells Occasional, Urine Bacteria Trace 12/21/24 01:23: POC Glucose 359 H* 12/21/24 02:38: Lactate 1.9 12/21/24 05:28: POC Glucose 194 H 12/21/24 05:29: WBC 12.2 H, RBC 3.52 L, Hgb 10.0 L D, Hct 30.3 L, MCV 86.1, MCH 28.7, MCHC 33.3, RDW 12.7, Plt Count 400, MPV 10.0, Neut % (Auto) 68.5, Lymph % (Auto) 19.1, [place] % (Auto) 9.2, Eos % (Auto) 1.6, Baso % (Auto) 0.5, Neut # (Auto) 8.3 H, Lymph # (Auto) 2.3, [place] # (Auto) 1.1 H, Eos # (Auto) 0.2, Baso # (Auto) 0.1, Sodium 136, Potassium 3.4 L, Chloride 103, Carbon Dioxide 23, Anion Gap 13.4, BUN 10, Creatinine 0.40 L D, Estimated Creat Clear 275, Estimated GFR 220, Est GFR ( Amer) 266 D, Glucose 183 H D, Calcium 8.0 L, Phosphorus 2.6, Magnesium 1.3 L 12/21/24 : Acetone Level Small Assessment and Plan Assessment and plan all Dx Assessment and Plan for all problems:: Pharmacokinetic dosing service Objective: Patient: Floor: Age: 59 yo Serum creatinine: 0.40 mg/dL Height: 65.0 Inches Weight (kg): 97.8 Assessment: IBW (kg): 61.50 Dosing wt(kg): 97.8 Estimated Creatinine clearance (ml/min): 130 Clearance limited to 130 ml/min to reduce risk of overdosing. CRCL method: Cockcroft and Gault using ibw(default). Drug selected: Vancomycin Loading dose (mg): Vd (liters): 78.2 (factor used: 0.8 L/kg) Miguel (hr-1): 0.112 Half life (hrs): 6.19 CLvanco=?? 8.758 L/hr Recommended dose: 2250 mg Interval: 12 hrs Infusion time (hrs): 2.0 Predicted peak (mcg/mL): 34.9 Predicted trough (mcg/mL): 11.39 Total body weight is being used for vancomycin dosing. Recommendations: Give Vancomycin 2250 mg q 12 hrs with an expected Cpeak of 34.9 mcg/ml and an expected Ctrough of 11.39 mcg/ml AUC 0-24 /DANIELLE Data: DANIELLE 0.5 mcg/mL:?? AUC/DANIELLE:? 1027.6 DANIELLE 1.0 mcg/mL:?? AUC/DANIELLE:? 513.8 --------- DANIELLE 1.5 mcg/mL:?? AUC/DANIELLE:? 342.5 DANIELLE 2.0 mcg/mL:?? AUC/DANIELLE:? 256.9 Thank you for the consult, will continue to follow. -ANA PAULA TROTTER, GLENISD
--- NOTE | 2024-12-21 08:00 | MR_ITS ---
PROCEDURE INFORMATION: Exam: MR Left Lower Extremity Without and With Contrast, Tibia Fibula Exam date and time: 12/21/2024 3:50 PM Age: 59 years old Clinical indication: Pain; Lower leg; Left; Prior surgery; Surgery date: Post-operative (0-2 days); Surgery type: I&d, earlier today; Eval for osteomyelitis; Additional info: Evaluation for osteomyelitis TECHNIQUE: Imaging protocol: Magnetic resonance imaging of the left lower extremity without and with contrast. Exam focused on the tibia and fibula. Contrast material: ISOVUE; Contrast volume: 19 ml; Contrast route: IV; COMPARISON: CT LOWER LEG LT W CON 12/20/2024 10:48 PM FINDINGS: Bones/joints: Osseous structures are intact. No abnormal signal changes or other evidence of osteomyelitis. There is there is a small focal area of signal alteration just beneath the lateral tibial plateau not well visualized presumed degenerative in nature. Soft tissues: There is diffuse superficial soft tissue swelling lower leg that mildly enhances following contrast administration with some accompanying skin thickening and increased vascularity consistent with the diffuse cellulitis. There is a postsurgical defect that has since been created lateral to the lateral malleolus the site of previously demonstrated fluid collection. There is no abscess or gas collection detected. Underlying muscle bundles and deep fascial planes are unremarkable. IMPRESSION: 1. Findings consistent with diffuse cellulitis left lower leg. No evidence of osteomyelitis. 2. Postsurgical changes lateral to the lateral malleolus. No residual abscess collection detected.
[2024-12-21] MEDS: VANCOMYCIN HCL 2,250 MG in 0.9 % SODIUM CHLORIDE 250 ML 125 MG IV ×2 (08:07→20:27)
--- NOTE | 2024-12-21 09:00 | CA_ITS ---
FINAL REPORT TECHNIQUE: Ultrasound images of the deep venous system were obtained from the left groin to the calf veins. CLINICAL HISTORY: edema, HTN, DM, smoker, obesity, cellulitis, rat bite to LLE. FINDINGS: The deep venous system is normally compressible. Normal flow is identified. Incidental note is made of a 3 cm left inguinal lymph node. IMPRESSION: No evidence of left lower extremity DVT. Reviewed, Interpreted and Dictated by Kiel Thurston MD Transcribed by Bethanie Guerin Authenticated and [facility]
--- NOTE | 2024-12-21 09:36 | P.CONS_ITS ---
History of Present Illness *Admission Date: 12/21/24 *History of present illness: A 59-year-old male with past medical history of hypertension, has not seen a physician since 2016, came to the emergency department for evaluation of left lower extremity pain and swelling, possibly triggered by a rat bite. The patient reports that left lower extremity swelling has been progressively worsening over the past couple of years with scaling skin texture. He states that today, December 20, he noticed discomfort in the lateral aspect of his left ankle and observed drainage from the area, prompting further evaluation. He notes the swelling and redness in his left leg have been chronic for years, with no recent changes in these findings, but believes the current draining ulcer may be related to a rat bite as home currently has rodent issue but does not recall being bitten. He denies fevers, chills, nausea, or vomiting. He reports no medication allergies. Treatments implemented in the emergency department include an ideal body weight- based sepsis fluid bolus with normal saline, initiation of intravenous vancomycin and piperacillin-tazobactam (Zosyn) for suspected infection, and 10 units of intravenous insulin to address hyperglycemia. CT scan of the left lower extremity obtained. Orthopedics consulted regarding treatment options left lower extremity [facility] Disclaimer: The information contained in this section may have been updated after the patient was seen, as this information can be updated by other users. Family History Mother Family history of cancer Family history of myocardial infarction Father Family history of stroke Social History Smoking Status: Current every day smoker alcohol intake: never current occupational status: unemployed Travel in the last 8 weeks: None Have you lived/traveled outside US in past 30 days?: No Contact w/someone who lives/traveled outside US past 30 days?: No Exposure to someone with infectious disease in past 14 days?: No Do you have a fever (greater than 100.4 F or 38 C)?: No Have you tested positive for COVID-19: No Exposed to someone with COVID-19 in past 14 days?: No Do you have a sore throat?: No Do you have a cough?: No Do you have any weakness?: No Do you have any diarrhea?: No Are you experiencing any unusual bleeding?: No Do you have any muscle aches/pain?: No Do you have any abdominal pain?: No Are you experiencing loss of taste or smell?: No Meds Home Medications and Allergies Home Medications ?Medication ?Instructions ?Recorded ?Confirmed ?Type No Known Home Medications 12/21/24 12/21/24 History New Prescriptions to Start Prescriptions: Allergies Allergy/AdvReac Type Severity Reaction Status Date / Time No Known Allergies Allergy Verified 12/20/24 21:54 Ortho Exam (Inpt) Vital signs and Labs for Last 24 Hours: Temp Pulse Resp BP Pulse Ox O2 Del Method 98.2 F 95 H 22 123/69 93 L Room Air 12/21/24 08:00 12/21/24 08:00 12/21/24 08:00 12/21/24 08:00 12/21/24 08:00 12/21/24 08:00 Laboratory Results - last 24 hr 12/20/24 22:21: WBC 12.6 H, RBC 4.20 L, Hgb 11.8 L, Hct 36.4 L, MCV 86.7, MCH 28.1, MCHC 32.4, RDW 12.6, Plt Count 457 H, MPV 9.9, Neut % (Auto) 72.2, Lymph % (Auto) 15.7, [place] % (Auto) 8.6, Eos % (Auto) 1.6, Baso % (Auto) 0.6, Neut # (Auto) 9.1 H, Lymph # (Auto) 2.0, [place] # (Auto) 1.1 H, Eos # (Auto) 0.2, Baso # (Auto) 0.1, Sodium 135 L, Potassium 4.0, Chloride 99, Carbon Dioxide 19 L, Anion Gap 21.0 H, BUN 13, Creatinine 0.70, Estimated Creat Clear 99, Estimated GFR 115, Est GFR ( Amer) 140, Glucose 484 H*, Hemoglobin A1c 12.6 H, Lactate 2.2 H, Calcium 8.9, Total Bilirubin 0.4, AST 30, ALT 22, Alkaline Phosphatase 269 H, Total Protein 9.3 H, Albumin 3.0 L, Globulin 6.3 H, Albumin/Globulin Ratio 0.5 L 12/20/24 23:03: VBG pH 7.37, VBG pCO2 38.0, VBG pO2 42.7 H, VBG HCO3 21.5 L, VBG Total CO2 22.6 L, VBG O2 Saturation 77.8 H, VBG Base Excess -3.8 L, VBG Lactic Acid 3.3 H 12/21/24 01:20: Urine Color Yellow, Urine Appearance Clear, Urine pH 5.5, Ur Specific [place] 1.010, Urine Protein Trace, Urine Glucose (UA) 3+, Urine Ketones 2+, Urine Blood 1+ A, Urine Nitrate Negative, Urine Bilirubin 1+ A, Urine Urobilinogen 0.2, Ur Leukocyte Esterase Negative, Urine RBC 3-5, Urine WBC None, Ur Squamous Epith Cells Occasional, Urine Bacteria Trace 12/21/24 01:23: POC Glucose 359 H* 12/21/24 02:38: Lactate 1.9 12/21/24 05:28: POC Glucose 194 H 12/21/24 05:29: WBC 12.2 H, RBC 3.52 L, Hgb 10.0 L D, Hct 30.3 L, MCV 86.1, MCH 28.7, MCHC 33.3, RDW 12.7, Plt Count 400, MPV 10.0, Neut % (Auto) 68.5, Lymph % (Auto) 19.1, [place] % (Auto) 9.2, Eos % (Auto) 1.6, Baso % (Auto) 0.5, Neut # (Auto) 8.3 H, Lymph # (Auto) 2.3, [place] # (Auto) 1.1 H, Eos # (Auto) 0.2, Baso # (Auto) 0.1, Sodium 136, Potassium 3.4 L, Chloride 103, Carbon Dioxide 23, Anion Gap 13.4, BUN 10, Creatinine 0.40 L D, Estimated Creat Clear 275, Estimated GFR 220, Est GFR ( Amer) 266 D, Glucose 183 H D, Calcium 8.0 L, Phosphorus 2.6, Magnesium 1.3 L 12/21/24 : Acetone Level Small I & O for Labs for Last 24 Hours: Intake & Output 12/18/24 12/19/24 12/20/24 12/21/24 23:59 23:59 23:59 23:59 Output Total 900 / 900 Balance -900 / -900 Weight 300 lb 215 lb 9.617 oz Microbiology Reports for the Last 24 Hours: Microbiology 12/20/24 01:12 Leg,Left Gram Stain - Final Head: Present normocephalic and atraumatic Comment:: Left lower extremity: There is diffuse swelling from the knee to the lower leg. Chronic appearing dry scaly skin. Ulceration on the most lateral aspect going up towards the head of the fibula with skin ulceration but no open wound. Left ankle area has open wound with purulent drainage. Results Labs 12/21/24 05:29 12/21/24 05:29 Labs: Abnormal lab results 12/20/24 12/20/24 12/21/24 Range/Units 22:21 23:03 01:20 WBC 12.6 H (4.8-10.8) K/mm3 RBC 4.20 L (4.60-6.20) M/mm3 Hgb 11.8 L (14.1-18.0) g/dL Hct 36.4 L (42.0-52.0) % Plt Count 457 H (142-424) K/mm3 Neut # (Auto) 9.1 H (1.8-7.8) K/mm3 [place] # (Auto) 1.1 H (0.1-1.0) K/mm3 VBG pO2 42.7 H (28-40) mmol/L VBG HCO3 21.5 L (23-30) mmol/L VBG Total CO2 22.6 L (23-27) mmol/L VBG O2 Saturation 77.8 H (50-70) % VBG Base Excess -3.8 L (-2.4-2.3) mmol/L VBG Lactic Acid 3.3 H (0.4-2.0) mmol/L Sodium 135 L (136-145) mmol/L Potassium (3.5-5.1) mmoL/L Carbon Dioxide 19 L (22.0-30.0) mmol/L Anion Gap 21.0 H (5-15) mEq/L Creatinine (0.66-1.25) mg/dl Glucose 484 H* (74-100) mg/dl POC Glucose (70-110) Hemoglobin A1c 12.6 H (4.0-6.0) % Lactate 2.2 H (0.7-2.1) mmol/L Calcium (8.4-10.2) mg/dl Magnesium (1.6-2.3) mg/dl Alkaline Phosphatase 269 H (38-126) U/L Total Protein 9.3 H (6.3-8.2) g/dl Albumin 3.0 L (3.5-5.0) g/dl Globulin 6.3 H (1.3-3.2) g/dL Albumin/Globulin Ratio 0.5 L (1.1-1.8) Urine Blood 1+ A (Negative) Urine Bilirubin 1+ A (Negative) 12/21/24 12/21/24 12/21/24 Range/Units 01:23 05:28 05:29 WBC 12.2 H (4.8-10.8) K/mm3 RBC 3.52 L (4.60-6.20) M/mm3 Hgb 10.0 L D (14.1-18.0) g/dL Hct 30.3 L (42.0-52.0) % Plt Count (142-424) K/mm3 Neut # (Auto) 8.3 H (1.8-7.8) K/mm3 [place] # (Auto) 1.1 H (0.1-1.0) K/mm3 VBG pO2 (28-40) mmol/L VBG HCO3 (23-30) mmol/L VBG Total CO2 (23-27) mmol/L VBG O2 Saturation (50-70) % VBG Base Excess (-2.4-2.3) mmol/L VBG Lactic Acid (0.4-2.0) mmol/L Sodium (136-145) mmol/L Potassium 3.4 L (3.5-5.1) mmoL/L Carbon Dioxide (22.0-30.0) mmol/L Anion Gap (5-15) mEq/L Creatinine 0.40 L D (0.66-1.25) mg/dl Glucose 183 H D (74-100) mg/dl POC Glucose 359 H* 194 H (70-110) Hemoglobin A1c (4.0-6.0) % Lactate (0.7-2.1) mmol/L Calcium 8.0 L (8.4-10.2) mg/dl Magnesium 1.3 L (1.6-2.3) mg/dl Alkaline Phosphatase (38-126) U/L Total Protein (6.3-8.2) g/dl Albumin (3.5-5.0) g/dl Globulin (1.3-3.2) g/dL Albumin/Globulin Ratio (1.1-1.8) Urine Blood (Negative) Urine Bilirubin (Negative) H & H 12/20/24 12/21/24 Range/Units 22:21 05:29 Hgb 11.8 L 10.0 L D (14.1-18.0) g/dL Hct 36.4 L 30.3 L (42.0-52.0) % All other labs normal. Assessment and Plan *Assessment and plan (1) Cellulitis of left lower extremity from knee to ankle: Status: Acute Category: Medical Code(s): L03.116 - Cellulitis of left lower limb (2) Diabetes mellitus, new onset: Status: Acute Category: Medical Code(s): E11.9 - Type 2 diabetes mellitus without complications (3) Sepsis: Status: Acute Qualifiers: Sepsis acute organ dysfunction status: with acute organ dysfunction S evere sepsis shock status: without septic shock Category: Medical Code(s): A41.9 - Sepsis, unspecified organism (4) Abscess of skin of left ankle: Status: Acute Category: Medical Code(s): L02.416 - Cutaneous abscess of left lower limb Plan Dressing taken down today. There is purulent drainage of the wound on the lateral aspect of the ankle. Significant lower extremity lymphedema and chronic scaling and swelling of the lower extremity. Patient is a poorly controlled diabetic has not had any medication for this. Unaware of how long he has been diabetic. Hemoglobin A1c significantly elevated 12.6. He is going to have wound healing issues for this particular situation. However acutely needs irrigation and debridement will place wound VAC to allow for healing of the wound bed. He will require MRI scan following I&D to evaluate for any changes of osteomyelitis of the fibula or ankle joint. Patient is n.p.o. therefore we will proceed with irrigation and sharp debridement left lower extremity today. Will obtain intraoperative cultures to drive antibiotics
[2024-12-21 09:46] LABS: Chol/HDL Ratio 5.1 (1-3.5); Cholesterol 96 mg/dl (140-200); HDL Cholesterol 19 mg/dl (40-60); Triglycerides 124 mg/dl (30-150); VLDL Cholesterol 25 mg/dL (0-40)
[2024-12-21 09:57] LABS: Direct LDL Cholesterol 44.22 mg/dL (100-129)
--- NOTE | 2024-12-21 10:25 | HMH.PTEV ---
Physical Therapy Evaluation Rehab PT IP Evaluation Start: 12/21/24 03:21 Freq: ONCE Status: Active Protocol: Document 12/21/24 08:45 MARY (Rec: 12/21/24 10:25 MARY [id number]) Subjective/History History History A 59-year-old male with past medical history of hypertension, has not seen a physician since 2015, came to the emergency department for evaluation of left lower extremity pain and swelling, possibly triggered by a rat bite. The patient reports that left lower extremity swelling has been progressively worsening over the past couple of years with scaling skin texture. He states that December 20, he noticed discomfort in the lateral aspect of his left ankle and observed drainage from the area. Pt currently lives independently at home with his adult son. He has ~4 steps to enter his home and does not currently use any AD. Subjective Subjective Pt presents alert and supine in bed this am. He states that he is willing to participate in therapy and walk around his room. Pt returned to bed for wound evaluation. [facility] How much help from another person do you currently need... Turning from your back to your side None while in a flat bed without using bedrails? Moving from lying on back to sitting on None the side of a flat bed without using bedrails? Moving to and from a bed to a chair ( None including a wheelchair)? Standing up from a chair using your arms None ? (e.g., wheelchair, bedside chair) Walking in hospital room? None Climbing 3-5 steps with a railing? None Mobility Score 24 Mobility Level [facility] Mobility Calculator Mobility 8 Walk 250 feet or more Rehab PT IP Eval Objective Appearance Patient Behavior Appropriate,Cooperative Patient Orientation Person,Place,Birthday,Month Difficulty following instructions none Speech Pattern Clear,Appropriate Ambulation Patient Able to Ambulate Yes Ambulation Observation IP General Gait Pattern Observation Wide Based Gait Ambulation Distance (feet) 25 Ambulation Assistive Device None Ambulation Ability Supervision/Stand by Balance Ability to Arise Able, w/o using arms Sitting Balance Steady, safe Standing Balance Steady, wide stance Dynamic Sitting Balance Ability Normal Dynamic Standing Balance Ability Normal Transfers Bed Transfer Ability Independent Sit to Stand Bed Transfer Ability Supervision/Stand by Rehab PT IP prob,goals,plan Problems Date of Evaluation: 12/21/24 Discharge Plan PT Discharge Plan Patient is currently indicated to return home once medically stable for d/c. Skilled acute therapy is not currently indicated as patient is independent with all mobility. Eval Complexity Eval Charge Codes 85420 - High Complexity PHYSICIAN CERTIFICATION: I certify the specified therapy services for Jonathan Mustapha Winn are required, authorized, and reviewed every 30 days.
--- NOTE | 2024-12-21 10:41 | SW/DCPLANNER ---
Addendum entered by Gali Ledbetter 12/24/24 09:41: CM has set patient up w/ outpatient wound care at [facility] for tomorrow 12/25/24 at 3PM. I have arranged [facility] for transport. Patient will discharge home today. Original Note: I spoke w/ this patient regarding plans once medically stable for discharge. I received a Care Management consult regarding rat infestation. Patient stated that he resides at home w/ his 35 year old son and his friend. Patient is able to ambulate independently, completes all ADLs and cooks/cleans for himself. Patient did confirm an issue w/ rats in the home but has been working on a solution w/ traps. Patient stated there are less rats in the home at this time. Patient confirmed that no children reside in the home and that he does currently have running water and electricity. I will continue to follow up w/ this patient to assist w/ any needs/new orders. Discharge date is unknown at this time.
--- NOTE | 2024-12-21 11:03 | HMH.PTWOUND ---
Rehab Inpt Wound Evaluation Rehab IP Wound Evaluation Start: 12/21/24 03:20 Freq: ONCE Status: Active Protocol: Document 12/21/24 10:42 MARY (Rec: 12/21/24 11:03 PHORASHI [id number]) Rehab PT Wound Assessment Subjective Subjective A 59-year-old male with past medical history of hypertension, has not seen a physician since 2015, came to the emergency department for evaluation of left lower extremity pain and swelling, possibly triggered by a rat bite. The patient reports that left lower extremity swelling has been progressively worsening over the past couple of years with scaling skin texture. He states that December 20, he noticed discomfort in the lateral aspect of his left ankle and observed drainage from the area. Pt currently lives independently at home with his adult son. He has ~4 steps to enter his home and does not currently use any AD. Pt presents with severe hyperkeratosis to L LE and L lateral ankle wound upon admission. Wound Left Lateral Ankle Wound Type unknown etiology Is This a Chronic Wound Yes Wound Length (cm) 2.3 Wound Width (cm) 2.2 Wound Depth (cm) 7.0 Wound Bed Appearance Yellow,Slough,Necrotic Percentage of Slough (%) 100 Wound Margins Description Indistinct Edema Type Non-Pitting Edema Appearance Hard,Open Sores Wound Drainage Description Purulent,Brown Drainage Amount Large Drainage Odor No Odor Wound Topical Solution/Irrigant Saline Irrigant Packing Type Gauze Pads Comment betadine soaked Primary Dressing Gauze Pad Wound Secondary Dressing Type Gauze Roll/Wrap Wound Debridement Method Gauze,Mechanical Wound Debridement Amount of Tissue Minimal Removed Dressing Change Patient Tolerance Tolerated Well Plan/Recommendation Comment Will await ortho recommendations for further conservative wound care vs surgery. Will follow and assist with wound care treatment as needed while pt remains adm to hospital. Eval Complexity Eval Charge Codes 06984 - High Complexity Aparicio-Adorno Wound Assessment Tool Assessment Wound size 2=Length x Width 4--<16 sq cm Wound depth 5=Full thickness skin loss with extensive destruction, tissue necrosis Wound edges 1=Indistinct, diffuse, none clearly visible Wound undermining 2=Undermining <2 cm in any area Necrotic tissue type 3=Loosely adherent yellow slough Necrotic tissue amount 5=75% to 100% of wound covered Exudate type 5=Purulent: thin or thick, opaque, barron/yellow, withour without odor Exudate amount 5=Large Skin color surrounding wound 2=Bright red &/or blanches to touch Peripheral tissue edema 5=Crepitus and/or pitting edema extends > or = 4 cm around wound Peripheral tissue induration 2=Induration,<2 cm around wound Granulation tissue 5=No granulation tissue present Epithelialization 5= < 25% wound covered Wound assessment total score 47 PHYSICIAN CERTIFICATION: I certify the specified therapy services for Jonathan Lakhanis are required, authorized, and reviewed every 30 days.
--- NOTE | 2024-12-21 12:01 | HMH.ITSTN ---
Went up to get patient for mri, while in patients room i received a call from 2nd floor stating that he was going to surgery and that the mri will be done after . His RN was in the room when i got the call and i told her that it could be today if not it will be done tomorrow.
[2024-12-21 12:15] LABS: POC Glucose,Bedside 235 (70-110)
--- NOTE | 2024-12-21 12:27 | EXP.ANES.CKL ---
[facility] Disclaimer: The information contained in this section may have been updated after the patient was seen, as this information can be updated by other users. Family History Mother Family history of cancer Family history of myocardial infarction Father Family history of stroke Social History Smoking Status: Current every day smoker alcohol intake: never substance use type: denies use current occupational status: unemployed Travel in the last 8 weeks: None [facility] Anesthesia Checklist Patient Identification Patient Identification: Arm Band Structural Data Admitted From: Home Planned Operative Procedure/s: I&D Left Foot Consent for Planned Operative Procedure(s) Verified: Yes Verified Documents: Surgical Consent and History and Physical NPO Status Verified Time NPO: 00:00 Additional verifications Anesthesia Reactions: No Airway Assessment Mallampati Score:: Class II C-Spine Mobility Assessed: Yes TMJ Mobility Assessed: Yes Dentition: Good Dentition Neurological Assessment Level of Consciousness: Awake, Alert and Appropriate Anesthesia Plan Anesthesia Risk discussed: Yes Anesthesia Plan: Verified ASA Class: III Anesthesia Type: General
[2024-12-21] MEDS: CEFAZOLIN 1GM VIAL 2 GM (13:18)
--- NOTE | 2024-12-21 14:14 | EXP.OP.NOTE ---
Date of procedure: 12/21/24 Pre-op Diagnosis:: Left ankle lower extremity open wound cellulitis abscess Post-op Diagnosis:: Same Procedure performed:: Irrigation sharp debridement 4 cm x 3 cm x 2 cm open wound left lateral ankle Surgeon:: Michael Kelley DO Director Of Outpatient Services(s):: Robert [place] CASE HARDENER:: Jonathan Harris Anesthesia: GETA Estimated blood loss (mL): 25 Operative findings:: Open wound abscess lateral ankle Gregory pus superior aspect of the wound with abscess Operative note:: Patient identified preoperatively. Left lower extremity marked with yes minus was transferred operative suite placed on the room by general anesthesia rivet bucker airway secured left lower extremity prepped and draped with a Betadine prep Of note patient has significant left lower extremity lymphedema and swelling also scaled roughened skin diffusely along the lower leg. The amount of swelling in the lower extremity is 3 times bigger than the contralateral side. There is open wound on the lateral aspect of the ankle with infected tissue and abscess. The open wound measured 4 cm x 3 cm x 2 cm deep. Sharp debridement with a knife and a rongeur was performed to remove all of the abnormal tissue in the bed of the wound over the lateral ankle. There is significant damage to the soft tissue with longstanding infection Rongeur was used to clean the wound. Pulsavac was utilized for irrigation of the wound exploration anteriorly in the aspect of the wound revealed abscess pus pocket. This was debrided and irrigated and suctioned. Cultures were taken of the wound and the tissue. Irrigation of the wound repeated. Attempts were then made for placement of a wound VAC. The VAC sponge was cut to proper dimensions and placed in the bed of the wound followed by a larger piece of sponge attempt was made for placement of the wound VAC this was made technically difficulty by the scaly nature of the lower extremity. It was impossible to get a suction without a leak. Multiple attempts were made for placement of the wound VAC but were not successful. Therefore wound was packed with Betadine soaked 4 x 4's followed by clean 4 x 4's followed by Curlex and Rickey bandage. Patient has significant lower extremity issues lymphedema scaling of the skin. Also of note patient will undergo MRI scan to rule out osteomyelitis of the lower extremity. There would not be a soft tissue envelope that was viable for below-knee amputation given the large amount of lymphedema and swelling and scaliness of the skin. We will try to allow this wound to heal continue with local wound measures make recommendations following MRI scan to rule out osteomyelitis. Condition: stable Disposition: PACU Complications:: None apparent
[2024-12-21 14:22] LABS: POC Glucose,Bedside 278 (70-110)
--- NOTE | 2024-12-21 14:47 | PC.NURSE ---
report given to DARIN English. Patient remains in surgery at this time, but after will go to room 207 med surg.
--- NOTE | 2024-12-21 14:51 | EXP.ANES.II ---
[facility] Anesthesia Record Part II Anesthesia Record Part II Discharge Time: 14:40 Destination: Surgical Day Care (OP Surgery) PACU nurse assessment reviewed?: Yes Patient Condition:: Good Anesthesia Complications:: None Swallowing reflex intact?: Yes Airway Patency: Patent Cyanosis?: No Blood Pressure: 133/72 SaO2: 93 Respiratory Rate: 16 Pulse Rate: 97 Temperature: 99.7 F Mental Status: Alert & Oriented Pain level:: 0 Nausea and/or vomitting:: None Intake, IV Amount: 0 Hydration: Adequate
--- NOTE | 2024-12-21 14:52 | HMH.ITSTN ---
Called and spoke with RN at 12:45 patient had just went down for surgery, will do CT after surgery per Dr. Lund
--- NOTE | 2024-12-21 15:34 | P.PN_ITS ---
Subjective *Date: 12/21/24 *Time: 15:34 Interval history: Patient lying in bed comfortably. No complaints. States it is what it is if he had to get an amputation. Exam Data for Last 24 hours Vital signs and Labs for Last 24 Hours: Temp Pulse Resp BP Pulse Ox O2 Del Method O2 Flow Rate 99.7 F H 97 H 16 133/72 93 L Nasal Cannula 2 12/21/24 14:40 12/21/24 14:40 12/21/24 14:52 12/21/24 14:40 12/21/24 14:40 12/21/24 14:40 12/21/24 14:40 Laboratory Results - last 24 hr 12/20/24 22:21: WBC 12.6 H, RBC 4.20 L, Hgb 11.8 L, Hct 36.4 L, MCV 86.7, MCH 28.1, MCHC 32.4, RDW 12.6, Plt Count 457 H, MPV 9.9, Neut % (Auto) 72.2, Lymph % (Auto) 15.7, [place] % (Auto) 8.6, Eos % (Auto) 1.6, Baso % (Auto) 0.6, Neut # (Auto) 9.1 H, Lymph # (Auto) 2.0, [place] # (Auto) 1.1 H, Eos # (Auto) 0.2, Baso # (Auto) 0.1, Sodium 135 L, Potassium 4.0, Chloride 99, Carbon Dioxide 19 L, Anion Gap 21.0 H, BUN 13, Creatinine 0.70, Estimated Creat Clear 99, Estimated GFR 115, Est GFR ( Amer) 140, Glucose 484 H*, Hemoglobin A1c 12.6 H, Lactate 2.2 H, Calcium 8.9, Total Bilirubin 0.4, AST 30, ALT 22, Alkaline Phosphatase 269 H, Total Protein 9.3 H, Albumin 3.0 L, Globulin 6.3 H, Albumin/Globulin Ratio 0.5 L 12/20/24 23:03: VBG pH 7.37, VBG pCO2 38.0, VBG pO2 42.7 H, VBG HCO3 21.5 L, VBG Total CO2 22.6 L, VBG O2 Saturation 77.8 H, VBG Base Excess -3.8 L, VBG Lactic Acid 3.3 H 12/21/24 01:20: Urine Color Yellow, Urine Appearance Clear, Urine pH 5.5, Ur Specific [place] 1.010, Urine Protein Trace, Urine Glucose (UA) 3+, Urine Ketones 2+, Urine Blood 1+ A, Urine Nitrate Negative, Urine Bilirubin 1+ A, Urine Urobilinogen 0.2, Ur Leukocyte Esterase Negative, Urine RBC 3-5, Urine WBC None, Ur Squamous Epith Cells Occasional, Urine Bacteria Trace 12/21/24 01:23: POC Glucose 359 H* 12/21/24 02:38: Lactate 1.9 12/21/24 05:28: POC Glucose 194 H 12/21/24 05:29: WBC 12.2 H, RBC 3.52 L, Hgb 10.0 L D, Hct 30.3 L, MCV 86.1, MCH 28.7, MCHC 33.3, RDW 12.7, Plt Count 400, MPV 10.0, Neut % (Auto) 68.5, Lymph % (Auto) 19.1, [place] % (Auto) 9.2, Eos % (Auto) 1.6, Baso % (Auto) 0.5, Neut # (Auto) 8.3 H, Lymph # (Auto) 2.3, [place] # (Auto) 1.1 H, Eos # (Auto) 0.2, Baso # (Auto) 0.1, Sodium 136, Potassium 3.4 L, Chloride 103, Carbon Dioxide 23, Anion Gap 13.4, BUN 10, Creatinine 0.40 L D, Estimated Creat Clear 275, Estimated GFR 220, Est GFR ( Amer) 266 D, Glucose 183 H D, Calcium 8.0 L, Phosphorus 2.6, Magnesium 1.3 L, Triglycerides 124, Cholesterol 96 L, LDL Cholesterol Direct 44.22 L, VLDL Cholesterol 25, HDL Cholesterol 19 L, Cholesterol/HDL Ratio 5.1 H 12/21/24 11:39: POC Glucose 235 H 12/21/24 14:15: POC Glucose 278 H 12/21/24 : Acetone Level Small I & O for Last 24 hours: Intake & Output 12/18/24 12/19/24 12/20/24 12/21/24 23:59 23:59 23:59 23:59 Intake Total 0 / 0 Output Total 900 / 900 Balance -900 / -900 Weight 136.078 kg 97.7 kg Microbiology Reports for the Last 24 Hours: Microbiology 12/20/24 01:12 Leg,Left Gram Stain - Final Constitutional Constitutional: no acute distress *Routine HEENT Exam Head: Present normocephalic Eye: Present EOMI and PERRL ENT: Present mucous membranes moist *Routine Neck Exam Neck: Present supple; Absent lymphadenopathy *Routine Respiratory Exam Respiratory: Present CTA bilaterally *Routine Cardiovascular Exam Cardiovascular: Present RRR *Routine Abdominal Exam Abdominal: Present soft and normoactive bowel sounds; Absent tenderness *Routine Extremities Exam Extremities: Present edema; Absent cyanosis or clubbing *Routine Skin Exam Skin: Present warm; Absent rash *Routine Neurological Exam Neurological: Present alert and oriented X3 Assessment and Plan *Assessment and plan (1) Diabetes mellitus, new onset: Status: Acute Category: Medical Code(s): E11.9 - Type 2 diabetes mellitus without complications (2) Cellulitis of left lower extremity from knee to ankle: Status: Acute Category: Medical Code(s): L03.116 - Cellulitis of left lower limb (3) Sepsis: Status: Acute Qualifiers: Sepsis acute organ dysfunction status: with acute organ dysfunction Severe sepsis shock status: without septic shock Category: Medical Code(s): A41.9 - Sepsis, unspecified organism (4) Obesity: Status: Acute Category: Medical Code(s): E66.9 - Obesity, unspecified (5) Poor dentition: Status: Acute Category: Medical Code(s): K08.9 - Disorder of teeth and supporting structures, unspecified Plan Jonathan Winn is a 59-year-old male who presents with worsening left lower extremity swelling, pain and was admitted for left lower extremity cellulitis, abscess. #Sepsis #Left lower extremity cellulitis, abscess #Suspected left malleolar osteomyelitis #Severe bilateral lower extremity venous sufficiency ? Patient reportedly lives at rat infested home, lives with son and friend. Patient thinks rash might have bitten him causing cellulitis. ? Orthopedic surgery consulted, s/p I&D 12/21/2024 of abscess. Will consider BKA/AKA once MRI evaluates for osteomyelitis. ? Follow-up lower extremity MRI to evaluate for osteomyelitis. ? WBC 12.2, with tachycardia. ? IV vancomycin, cefepime. Follow-up cultures. ? Wound care consulted. ? BNP 506, follow-up ECHO. ? Follow-up lower extremity CTA to evaluate for occlusive PAD. #Normocytic anemia ? Hemoglobin 10.0. Follow-up B12, folate, iron studies. #Type 2 diabetes, new diagnosis ? Hemoglobin A1c 12.6%, likely higher in the setting of anemia. ? Lantus 20 units daily, LDSSI, ACHS glucose checks. #Hematuria ? In the absence of UTI. Will refer to urology. Full code DVT prophylaxis: Lovenox 40 mg
--- NOTE | 2024-12-21 15:52 | P.PNANES_ITS ---
[facility] [place] Anesthesia Record Part I Anesthesia Record I Intake, IV Amount: 700 Hydration: Adequate Estimated blood loss (mL): 10 Urine output (mL): 0 Blood Products used (#): none Blood Pressure: 141/79 SaO2: 94 Pulse Rate: 104 Airway Patency: Patent Respiratory Rate: 14 Temperature: 99.7 F Patient is:: Drowsy and Stable Stable to PACU at:: 14:10
--- NOTE | 2024-12-21 15:54 | HMH.ITSTN ---
pt unable to give consent for contrast for 24hrs after anesthesia per pts padmini dia. ct runoff on hold
[2024-12-21] MEDS: SODIUM CHLORIDE 0.9% 10ML SYR (RAD ONLY) 10 ML IV (17:09)
[2024-12-21] MEDS: GADOTERIDOL INJ 20ML SYRINGE 19 ML IV (17:09)
[2024-12-21 17:35] LABS: POC Glucose,Bedside 382 (70-110)
[2024-12-21] MEDS: CEFEPIME HCL 2 GM in 0.9 % SODIUM CHLORIDE 100 ML IV (17:47)
[2024-12-21] MEDS: INSULIN GLARGINE 100 UNITS/ML 3ML FLEXPEN 20 UNIT SUBCUT (17:51)
[2024-12-21 20:05] LABS: POC Glucose,Bedside 355 (70-110)
[2024-12-21 20:25] LABS: NT Pro Brain Natriuretic Pep. 506 pg/mL (0-125)
[2024-12-21 22:54] LABS: POC Glucose,Bedside 332 (70-110)
[2024-12-22] MEDS: CEFEPIME HCL 2 GM in 0.9 % SODIUM CHLORIDE 100 ML IV ×3 (00:57→16:45)
[2024-12-22 02:17] VITALS: BP 120/72; PULSE 85; RESP 18; O2SAT 95
--- NOTE | 2024-12-22 03:24 | PC.NURSE ---
Pt has denied pain or any issues post-op throughout this shift. VSS. Pt has received abx as ordered. Resting in bed with eyes closed at this time. Respirations even and unlabored. Bed is low, locked, and call light is in reach.
[2024-12-22 04:00] VITALS: BP 117/69; PULSE 64; RESP 14; TEMP 36.8; O2SAT 95; BMI 35.9
[2024-12-22] MEDS: humaLOG 100 UNITS/ML 10ML VIAL (SSI) SUBCUT ×4 (04:13→22:38)
[2024-12-22 04:15] LABS: POC Glucose,Bedside 299 (70-110)
[2024-12-22 06:16] LABS: Basophils # 0.1 K/mm3 (0-0.2); Basophils % 0.4 % (0.1-2.0); Eosinophils % 0.3 % (0.1-12.0); Hematocrit 33.1 % (42.0-52.0); Hemoglobin 10.7 g/dL (14.1-18.0); Lymphocytes # 2.4 K/mm3 (0.7-4.5); Lymphocytes % 19.4 % (10-50); Mean Corpuscular HGB Conc 32.3 g/dL (31.8-35.4); Mean Corpuscular Hemoglobin 28.2 pg (27.0-31.2); Mean Corpuscular Volume 87.1 fl (80-94); Mean Platelet Volume 9.6 fl (7.4-10.4); Monocytes # 0.7 K/mm3 (0.1-1.0); Neutrophils # 8.9 K/mm3 (1.8-7.8); Neutrophils % 72.7 % (37.0-80.0); Nucleated Red Blood Cells # 0 10^3/uL; Nucleated Red Blood Cells % 0 %; Platelet Count 414 K/mm3 (142-424); Red Cell Distribution Width 12.7 % (11.5-17.5); Red Cell Distribution Width-SD 40.8 fL; White Blood Count 12.2 K/mm3 (4.8-10.8)
[2024-12-22 06:21] LABS: Chloride 106 mmol/L (98-107); Potassium 3.4 mmoL/L (3.5-5.1); Sodium 139 mmol/L (136-145)
[2024-12-22 06:24] LABS: Anion Gap 14.4 mEq/L (5-15); Blood Urea Nitrogen 16 mg/dl (9-20); Carbon Dioxide 22 mmol/L (22.0-30.0); Creatinine Clearance Estimated 92 mL/min (50-200); Estimated Glomerular Filt Rate 62 ml/min (>60); GFR (African American) 75 ML/MIN (>60)
[2024-12-22 06:25] LABS: Glucose 275 mg/dl (74-100)
--- NOTE | 2024-12-22 06:27 | CA_ITS ---
APPROVED REPORT EXAM: Comprehensive 2D, Doppler, and color-flow Echocardiogram Strike Planning Applications: Yesica Andujar, RT(R) Ht: 5 ft 4 in Wt: 217lbs BSA: 2.03 BP: 133/72 mmHg Indications: smoker, edema, cellulitis, DM, sepsis. Patient refused contrast. 2D Dimensions Aortic Root 2.03 cm M: 3.1 - 3.7 EF AP4 52.80 % Left Atrium 2.73 cm M: 3.0 - 4.0 GL Strain -17.4 % M-Mode Dimensions RVDd 3.36 cm (0.9-2.6) LVDd 4.67 cm (3.5-5.7) Ao Diam 3.71 cm (2.0-3.7) LVDs 3.27 cm (3.5-5.7) IVSd 0.68 cm (0.6-1.1) PWd 0.68 cm (0.6-1.1) EF (Teich) 57.10% FS 30.00% EDV (Teich) 100.80 mL ESV (Teich) 43.20 mL LV Diastology E Decel Time 165 (160-240 msec) E/A Ratio 1.0 MED E' 9.5 (>= 7 cm/sec) E'/MED E' Ratio 11.61 (<= 14) LAT E' 13.4 (>= 10 cm/sec) E/LAT E' Ratio 8.23 (<= 14) Mitral Valve MV E Max Eddie. 110.0 (40-130 cm/s) MV A Velocity 106.0 (40-130 cm/s) E/A Ratio 1.04 MV Decel. Time 165 (160-240 ms) Left Ventricle The left ventricle is normal size. The left ventricular systolic function is normal. The left ventricular ejection fraction is within the normal range. There is increased LV wall thickness. There is normal LV segmental wall motion. The left ventricular diastolic function is normal. LVEF is 55%. Right Ventricle The right ventricle is mildly dilated. The right ventricular systolic function is normal. Atria The left atrium size is normal. The right atrium size is normal. There is no Doppler evidence of interatrial shunt. Aortic Valve Aortic valve is mildly thickened. Trace aortic regurgitation. There is no aortic valvular stenosis. Mitral Valve The mitral valve is normal in structure. Trace mitral regurgitation. Tricuspid Valve Tricuspid valve is grossly normal in structure and function. Trace tricuspid regurgitation. There is insufficient TR jet to estimate RVSP. Pulmonic Valve The pulmonary valve is normal in structure. Trace pulmonic regurgitation. Great Vessels The aortic root is normal in size. IVC is normal in size and collapses >50% with inspiration. Pericardium There is no pericardial effusion. Other Information Study Quality: Fair Conclusion Normal biventricular systolic function. Mild RV dilation. No significant valvular stenosis or regurgitation. Electronically signed by : Nadya Calderón MD 12/23/2024 13:51:13
[2024-12-22 06:39] LABS: Iron 40 ug/dL (49-181)
[2024-12-22 06:48] LABS: Total Iron Binding Capacity 154 ug/dL (261-462)
[2024-12-22] MEDS: POTASSIUM CHLORIDE 20MEQ TAB 40 MEQ PO (07:41)
[2024-12-22] MEDS: VANCOMYCIN HCL 2,250 MG in 0.9 % SODIUM CHLORIDE 250 ML 125 MG IV (07:41)
[2024-12-22 08:00] VITALS: BP 129/63; PULSE 89; RESP 18; TEMP 36.8; O2SAT 94
[2024-12-22 08:20] LABS: Folate 8.53 ng/mL
[2024-12-22] MEDS: INSULIN GLARGINE 100 UNITS/ML 3ML FLEXPEN 30 UNIT SUBCUT (08:28)
[2024-12-22 08:34] LABS: Ferritin 1050 ng/ml (17.9-464)
[2024-12-22 08:38] LABS: POC Glucose,Bedside 286 (70-110)
[2024-12-22 09:22] LABS: Magnesium 1.4 mg/dl (1.6-2.3)
[2024-12-22 09:27] LABS: Vitamin B12 790 pg/mL (239-931)
[2024-12-22 11:17] LABS: POC Glucose,Bedside 312 (70-110)
[2024-12-22 12:00] VITALS: BP 121/82; PULSE 101; RESP 18; TEMP 37.2; O2SAT 94
[2024-12-22 14:22] LABS: Adenovirus F 40/41, stool Not Detected (NotDetected); Astrovirus Not Detected (NotDetected); Clostridium Difficile A/B, PCR Not Detected (NotDetected); Cryptosporidium Not Detected (NotDetected); Cyclospora Cayetanesis Not Detected (NotDetected); Entamoeba histolytica Not Detected (NotDetected); Enteroaggregative E coli Not Detected (NotDetected); Enteropathogenic E coli Not Detected (NotDetected); Enterotoxigenic E coli Not Detected (NotDetected); Giardia lamblia Not Detected (NotDetected); Norovirus Not Detected (NotDetected); Plesimonas Shigalloides, PCR Not Detected (NotDetected); Rotavirus A Not Detected (NotDetected); Salmonella, PCR Not Detected (NotDetected); Sapovirus Not Detected (NotDetected); Shiga-like toxin E coli Not Detected (NotDetected); Shigella Enterovasive E coli Not Detected (NotDetected); Vibrio Cholerae Not Detected (NotDetected); Vibrio, PCR Not Detected (NotDetected); Yersinia Entercolitica, PCR Not Detected (NotDetected)
[2024-12-22 14:24] LABS: Campylobacter Not Detected (NotDetected)
[2024-12-22 16:00] VITALS: BP 126/73; PULSE 87; RESP 20; TEMP 36.6; O2SAT 92
[2024-12-22 16:20] LABS: POC Glucose,Bedside 248 (70-110)
--- NOTE | 2024-12-22 17:40 | PC.NURSE ---
patient is a/ox4 and remains on RA tolerating well. Q6 finger sticks treated per sliding scale. patient has ambulated to the bathroom via x1 assist. has had several loose BM this shift, MD notified earlier in shift, stool panel collected. pt has no c/o pain this shift, left lower extremity dressing C/D/I. currently eating dinner. call light within reach, plan of care on going.
--- NOTE | 2024-12-22 17:55 | EXP.ACUTE.PN ---
Subjective *Date: 12/22/24 *Time: 17:55 Interval history: Denies any pain. Stable on room air. MRI formal read still pending. Orthopedics assisting with care. Denies nausea, vomiting, chest pain or shortness of breath. Medical Exam Vital signs and Labs for Last 24 Hours: Vital Signs Temp Pulse Pulse Resp BP Pulse Ox O2 Del Method 12/22/24 17:00 Room Air 12/22/24 16:00 97.8 F 87 20 126/73 92 L Room Air 12/22/24 15:00 Room Air 12/22/24 12:57 Room Air 12/22/24 12:00 98.9 F 101 H 18 121/82 94 L Room Air 12/22/24 11:00 Room Air 12/22/24 09:00 Room Air 12/22/24 08:00 Room Air 12/22/24 08:00 98.2 F 89 18 129/63 94 L Room Air 12/22/24 06:43 Room Air 12/22/24 05:00 Room Air 12/22/24 04:00 98.2 F 64 14 117/69 95 Room Air 12/22/24 03:00 Room Air 12/22/24 02:17 85 18 120/72 95 Room Air 12/22/24 01:00 Room Air 12/21/24 23:00 Room Air 12/21/24 22:30 90 16 104/59 L 95 Room Air 12/21/24 21:00 Room Air 12/21/24 20:00 Room Air 12/21/24 19:30 90 18 119/72 91 L Room Air 12/21/24 19:00 Room Air 12/21/24 18:30 80 20 139/78 98 Room Air Intake and Output 12/22/24 12/22/24 12/22/24 07:59 15:59 23:59 Intake Total 600 / 600 Output Total 0 / 1 0 / 1 Balance 0 / 599 599 / 599 0 / 599 Intake: Intake, Oral Amount 600 / 600 Output: Output, Urine Amount 0 / 1 1 / 0 / 1 Other: Number of Unmeasured Voids 2 1 Number of Bowel Movements 1 1 1 Weight 97.7 kg Patient Weight 12/22/24 23:59 Weight 97.7 kg Laboratory Results - last 24 hr 12/21/24 19:45: POC Glucose 355 H* 12/21/24 19:46: NT-Pro-B Natriuret Pep 506 H 12/21/24 22:46: POC Glucose 332 H* 12/22/24 04:07: POC Glucose 299 H 12/22/24 05:44: WBC 12.2 H, RBC 3.80 L, Hgb 10.7 L, Hct 33.1 L, MCV 87.1, MCH 28.2, MCHC 32.3, RDW 12.7, Plt Count 414, MPV 9.6, Neut % (Auto) 72.7, Lymph % (Auto) 19.4, [place] % (Auto) 6.0, Eos % (Auto) 0.3, Baso % (Auto) 0.4, Neut # (Auto) 8.9 H, Lymph # (Auto) 2.4, [place] # (Auto) 0.7, Eos # (Auto) 0.0, Baso # (Auto) 0.1, Sodium 139, Potassium 3.4 L, Chloride 106, Carbon Dioxide 22, Anion Gap 14.4, BUN 16 D, Creatinine 1.20 D, Estimated Creat Clear 92, Estimated GFR 62, Est GFR ( Amer) 75 D, Glucose 275 H, Calcium 8.0 L, Magnesium 1.4 L, Iron 40 L, TIBC 154 L, Iron Saturation 25.66796, Ferritin 1050 H, Vitamin B12 790, Folate 8.53 12/22/24 08:29: POC Glucose 286 H 12/22/24 11:07: POC Glucose 312 H* 12/22/24 14:22: Stl C. cayetanensis PCR Not detected, Stool Rotavirus (PCR) Not detected, Stl Adenov F 40/41 PCR Not detected, Stool Astrovirus (PCR) Not detected, Stool Campylobacter PCR Not detected, Stl C.difficile Tox PCR Not detected, Stool Cryptosporidium PCR Not detected, Stl E.coli Shiga Tox PCR Not detected, Stool E coli O157 PCR Not detected, Stl Enterotoxigenic E PCR Not detected, Stool EPEC (PCR) Not detected, Stool EAEC (PCR) Not detected, Stl E. histolytica PCR Not detected, Stool Giardia Lamblia PCR Not detected, Stool Salmonella PCR Not detected, Stool Sapovirus (PCR) Not detected, Stl P. shigelloides PCR Not detected, Stl Shigella/EIEC PCR Not detected, St Y.enterocolitica PCR Not detected, Stool Vibrio (PCR) Not detected, Stl Vibrio cholerae PCR Not detected, Stl Norovirus GI/GII PCR Not detected 12/22/24 16:10: POC Glucose 248 H I & O for Labs for Last 24 Hours: Intake & Output 12/19/24 12/20/24 12/21/24 12/22/24 23:59 23:59 23:59 23:59 Intake Total 1300 / 1300 600 / 600 Output Total 1400 / 1400 Balance -100 / -100 599 / 599 Weight 136.078 kg 97.7 kg 97.7 kg Microbiology Reports for the Last 24 Hours: Microbiology 12/20/24 01:12 Leg,Left Gram Stain - Final 12/20/24 01:12 Leg,Left Wound Culture - Preliminary 12/21/24 13:00 Ankle,Left Gram Stain - Final 12/20/24 22:21 Blood Blood Culture - Preliminary NO GROWTH AFTER 24 HOURS 12/20/24 22:05 Blood Blood Culture - Preliminary NO GROWTH AFTER 24 HOURS Constitutional: Present no acute distress, obese, chronically ill appearing and cooperative Head: Present atraumatic and normocephalic ENT: Present normal exam Respiratory: Present normal respiratory effort; Absent rhonchi, wheezes or crackles Cardiac: Present Reg Rate and Rhythm GI: Present soft and normal bowel sounds; Absent distention or tenderness Extremities: Present full ROM and edema (Dense woody edema of left lower extremity, 4+ to thigh. significant slough and scale of skin); Absent normal inspection or tenderness Skin: Absent erythema Neuro: Present Grossly Intact, alert, awake, oriented x 3 and moves all extremities Assessment and Plan *Assessment and plan (1) Diabetes mellitus, new onset: Status: Acute Category: Medical Code(s): E11.9 - Type 2 diabetes mellitus without complications (2) Cellulitis of left lower extremity from knee to ankle: Status: Acute Category: Medical Code(s): L03.116 - Cellulitis of left lower limb (3) Sepsis: Status: Acute Qualifiers: Sepsis acute organ dysfunction status: with acute organ dysfunction Severe sepsis shock status: without septic shock Category: Medical Code(s): A41.9 - Sepsis, unspecified organism (4) Obesity: Status: Acute Category: Medical Code(s): E66.9 - Obesity, unspecified (5) Poor dentition: Status: Acute Category: Medical Code(s): K08.9 - Disorder of teeth and supporting structures, unspecified Plan Jonathan Winn is a 59-year-old male who presents with worsening left lower extremity swelling, pain and was admitted for left lower extremity cellulitis, abscess. Orthopedics assisting with care. Continues to require inpatient management. 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 Patient reportedly lives at rat infested home, lives with son and friend. Patient thinks rash might have bitten him causing cellulitis. ? Orthopedic surgery consulted, s/p I&D 12/21/2024 of abscess. MRI obtained, does not show osteomyelitis in the distal fibula. Will continue conservative management with antibiotics at this time. -White count remains elevated at 12.2. Repeat CBC, CMP, magnesium ordered for the morning. - Continue IV vancomycin and IV cefepime. Culture still pending. ?Defer CTA of lower extremity due to contrast received multiple times in the past 24 to 48 hours with APOLONIA on morning labs. Will reevaluate in the coming days. As there is no plan for BKA/AKA at this time, will defer further staging of blood flow to the leg #Normocytic anemia ? Hemoglobin 10.7. Follow-up B12, folate, iron studies. #Type 2 diabetes, new diagnosis ? Hemoglobin A1c 12.6%, likely higher in the setting of anemia. ? Increase Lantus to 30 units daily. Continue sliding scale insulin at high intensity. Glucose monitoring ACHS. - Morning glucose 275 APOLONIA: BUN 16, creatinine 1.2. Baseline 0.7. Near doubling of creatinine. Monitor closely given recent contrast administration. Potassium 3.4, magnesium 1.4, replace per protocol #Hematuria ? In the absence of UTI. Will refer to urology. Full code DVT prophylaxis: Lovenox 40 mg
--- NOTE | 2024-12-22 18:16 | P.PN_ITS ---
Subjective *Date: 12/22/24 *Time: 18:16 Interval history: Patient doing relatively well. Had surgery yesterday for irrigation and sharp debridement of the open wound on the lateral aspect of his ankle that tracked to his anterior aspect of his ankle joint tibia. Interoperative cultures were taken at that time still pending overall he feels okay he has been walking on his leg with minimal pain. Ortho Exam (Inpt) Vital signs and Labs for Last 24 Hours: Temp Pulse Resp BP Pulse Ox O2 Del Method O2 Flow Rate 97.8 F 87 20 126/73 92 L Room Air 2 12/22/24 16:00 12/22/24 16:00 12/22/24 16:00 12/22/24 16:00 12/22/24 16:00 12/22/24 17:00 12/21/24 14:40 Laboratory Results - last 24 hr 12/21/24 19:45: POC Glucose 355 H* 12/21/24 19:46: NT-Pro-B Natriuret Pep 506 H 12/21/24 22:46: POC Glucose 332 H* 12/22/24 04:07: POC Glucose 299 H 12/22/24 05:44: WBC 12.2 H, RBC 3.80 L, Hgb 10.7 L, Hct 33.1 L, MCV 87.1, MCH 28.2, MCHC 32.3, RDW 12.7, Plt Count 414, MPV 9.6, Neut % (Auto) 72.7, Lymph % (Auto) 19.4, [place] % (Auto) 6.0, Eos % (Auto) 0.3, Baso % (Auto) 0.4, Neut # (Auto) 8.9 H, Lymph # (Auto) 2.4, [place] # (Auto) 0.7, Eos # (Auto) 0.0, Baso # (Auto) 0.1, Sodium 139, Potassium 3.4 L, Chloride 106, Carbon Dioxide 22, Anion Gap 14.4, BUN 16 D, Creatinine 1.20 D, Estimated Creat Clear 92, Estimated GFR 62, Est GFR ( Amer) 75 D, Glucose 275 H, Calcium 8.0 L, Magnesium 1.4 L, Iron 40 L, TIBC 154 L, Iron Saturation 25.63224, Ferritin 1050 H, Vitamin B12 790, Folate 8.53 12/22/24 08:29: POC Glucose 286 H 12/22/24 11:07: POC Glucose 312 H* 12/22/24 14:22: Stl C. cayetanensis PCR Not detected, Stool Rotavirus (PCR) Not detected, Stl Adenov F 40/41 PCR Not detected, Stool Astrovirus (PCR) Not detected, Stool Campylobacter PCR Not detected, Stl C.difficile Tox PCR Not detected, Stool Cryptosporidium PCR Not detected, Stl E.coli Shiga Tox PCR Not detected, Stool E coli O157 PCR Not detected, Stl Enterotoxigenic E PCR Not detected, Stool EPEC (PCR) Not detected, Stool EAEC (PCR) Not detected, Stl E. histolytica PCR Not detected, Stool Giardia Lamblia PCR Not detected, Stool Salmonella PCR Not detected, Stool Sapovirus (PCR) Not detected, Stl P. shigelloides PCR Not detected, Stl Shigella/EIEC PCR Not detected, St Y.enterocolitica PCR Not detected, Stool Vibrio (PCR) Not detected, Stl Vibrio cholerae PCR Not detected, Stl Norovirus GI/GII PCR Not detected 12/22/24 16:10: POC Glucose 248 H I & O for Labs for Last 24 Hours: Intake & Output 12/19/24 12/20/24 12/21/24 12/22/24 23:59 23:59 23:59 23:59 Intake Total 1300 / 1300 600 / 600 Output Total 1400 / 1400 Balance -100 / -100 599 / 599 Weight 300 lb 215 lb 6.266 oz 215 lb 6.266 oz Microbiology Reports for the Last 24 Hours: Microbiology 12/20/24 01:12 Leg,Left Gram Stain - Final 12/20/24 01:12 Leg,Left Wound Culture - Preliminary 12/21/24 13:00 Ankle,Left Gram Stain - Final 12/20/24 22:21 Blood Blood Culture - Preliminary NO GROWTH AFTER 24 HOURS 12/20/24 22:05 Blood Blood Culture - Preliminary NO GROWTH AFTER 24 HOURS Findings:: Left lower extremity: Surgical dressing in place no active drainage wiggles toes sensation intact Assessment and Plan *Assessment and plan (1) Cellulitis of left lower extremity from knee to ankle: Status: Acute Category: Medical Code(s): L03.116 - Cellulitis of left lower limb (2) Diabetes mellitus, new onset: Status: Acute Category: Medical Code(s): E11.9 - Type 2 diabetes mellitus without complications (3) Sepsis: Status: Acute Qualifiers: Sepsis acute organ dysfunction status: with acute organ dysfunction Severe sepsis shock status: without septic shock Category: Medical Code(s): A41.9 - Sepsis, unspecified organism (4) Abscess of skin of left ankle: Status: Acute Category: Medical Code(s): L02.416 - Cutaneous abscess of left lower limb Plan I reviewed the MRI scan findings with him today. There is resolution of the abscess seen on the CT scan as well as no MRI evidence of osteomyelitis. This does give options in regards to trying to heal this wound. He is obviously has this seriously complicated course to do so. He has this diffuse lower extremity lymphedema and swelling made it impossible to place the wound VAC and get suction. Will have wound care evaluate the patient tomorrow for dressing change and possible solutions in regards to wound management secondary healing. Optimally he would have a wound VAC on this area if we can get suction seal. Cultures pending and specific antibiotics pending cultures. I had a discussion with him regarding the possibility of continuing to fight the infection the possibility of requiring above-knee amputation. He also has not had any medical treatment certainly has multiple medical issues. He has a very complicated recovery. No acute plans for above-knee amputation will follow recommendations in regards to wound care and monitor the possibility of the need for a second surgery for irrigation and debridement.
[2024-12-22 19:53] VITALS: BP 123/68; PULSE 94; RESP 18; TEMP 36.7; O2SAT 91
[2024-12-22] MEDS: MAGNESIUM SULFATE IN WATER 2 GM/50 ML PIGGYBACK IV ×3 (20:46→22:35)
[2024-12-22 22:40] LABS: POC Glucose,Bedside 296 (70-110)
[2024-12-23] VITALS (7 sets, daily range): BP systolic 105–145; BP diastolic 61–83; PULSE 87–109; RESP 16–18; TEMP 36.5–37.1; O2SAT 92–96; BMI 36.3
[2024-12-23] MEDS: CEFEPIME HCL 2 GM in 0.9 % SODIUM CHLORIDE 100 ML IV ×2 (01:23→09:04)
--- NOTE | 2024-12-23 02:43 | PC.NURSE ---
Pt AOx4. Received mag replacement and cefepime. Vancomycin currently on hold d/t vanc trough of 32. Respirations even and unlabored. Denies pain or any additional needs. Pt resting in low, locked bed with call light in reach.
[2024-12-23] MEDS: humaLOG 100 UNITS/ML 10ML VIAL (SSI) SUBCUT ×4 (04:23→22:06)
[2024-12-23 04:26] LABS: POC Glucose,Bedside 254 (70-110)
[2024-12-23 06:25] LABS: Basophils # 0.1 K/mm3 (0-0.2); Basophils % 0.8 % (0.1-2.0); Eosinophils # 0.3 K/mm3 (0.0-0.4); Hematocrit 32.7 % (42.0-52.0); Hemoglobin 10.4 g/dL (14.1-18.0); Lymphocytes % 19.8 % (10-50); Mean Corpuscular HGB Conc 31.8 g/dL (31.8-35.4); Mean Corpuscular Hemoglobin 28.1 pg (27.0-31.2); Mean Corpuscular Volume 88.4 fl (80-94); Mean Platelet Volume 9.3 fl (7.4-10.4); Monocytes # 0.7 K/mm3 (0.1-1.0); Monocytes % 6.9 % (1.7-9.3); Neutrophils # 6.9 K/mm3 (1.8-7.8); Neutrophils % 67.8 % (37.0-80.0); Nucleated Red Blood Cells # 0 10^3/uL; Nucleated Red Blood Cells % 0 %; Platelet Count 384 K/mm3 (142-424); Red Cell Distribution Width-SD 42.2 fL; White Blood Count 10.2 K/mm3 (4.8-10.8)
[2024-12-23 06:41] LABS: Chloride 111 mmol/L (98-107)
[2024-12-23 06:42] LABS: Potassium 3.5 mmoL/L (3.5-5.1); Sodium 140 mmol/L (136-145)
[2024-12-23 06:44] LABS: Blood Urea Nitrogen 19 mg/dl (9-20); Creatinine Clearance Estimated 79 mL/min (50-200); Estimated Glomerular Filt Rate 52 ml/min (>60); GFR (African American) 63 ML/MIN (>60)
[2024-12-23 06:45] LABS: Anion Gap 10.5 mEq/L (5-15); Calcium 8.2 mg/dl (8.4-10.2); Carbon Dioxide 22 mmol/L (22.0-30.0); Glucose 197 mg/dl (74-100)
--- NOTE | 2024-12-23 07:53 | P.CONPHA_ITS ---
Pharmacy Consult Date: 12/23/24 Time: 08:00 Referring provider: DR FOWLER Reason for Consult:: VANCOMYCIN TROUGH LEVEL OBTAINED Allergies Allergy/AdvReac Type Severity Reaction Status Date / Time No Known Allergies Allergy Verified 12/20/24 21:54 Home Medications ?Medication ?Instructions ?Recorded ?Confirmed ?Type No Known Home Medications 12/21/24 12/21/24 History New Prescriptions to Start Prescriptions: Height: 1.65 m Weight: 98.792 kg Laboratory Results:: Laboratory Results - last 24 hr 12/22/24 05:44: Magnesium 1.4 L, Ferritin 1050 H, Vitamin B12 790, Folate 8.53 12/22/24 08:29: POC Glucose 286 H 12/22/24 11:07: POC Glucose 312 H* 12/22/24 14:22: Stl C. cayetanensis PCR Not detected, Stool Rotavirus (PCR) Not detected, Stl Adenov F 40/41 PCR Not detected, Stool Astrovirus (PCR) Not detected, Stool Campylobacter PCR Not detected, Stl C.difficile Tox PCR Not dete cted, Stool Cryptosporidium PCR Not detected, Stl E.coli Shiga Tox PCR Not detected, Stool E coli O157 PCR Not detected, Stl Enterotoxigenic E PCR Not detected, Stool EPEC (PCR) Not detected, Stool EAEC (PCR) Not detected, Stl E. histolytica PCR Not detected, Stool Giardia Lamblia PCR Not detected, Stool Salmonella PCR Not detected, Stool Sapovirus (PCR) Not detected, Stl P. shigelloides PCR Not detected, Stl Shigella/EIEC PCR Not detected, St Y.enterocolitica PCR Not detected, Stool Vibrio (PCR) Not detected, Stl Vibrio cholerae PCR Not detected, Stl Norovirus GI/GII PCR Not detected 12/22/24 16:10: POC Glucose 248 H 12/22/24 19:30: Vancomycin Trough 32.0 H 12/22/24 22:32: POC Glucose 296 H 12/23/24 00:45: Vancomycin Peak 27.0 12/23/24 04:19: POC Glucose 254 H 12/23/24 05:59: WBC 10.2, RBC 3.70 L, Hgb 10.4 L, Hct 32.7 L, MCV 88.4, MCH 28.1, MCHC 31.8, RDW 13.0, Plt Count 384, MPV 9.3, Neut % (Auto) 67.8, Lymph % (Auto) 19.8, [place] % (Auto) 6.9, Eos % (Auto) 3.0, Baso % (Auto) 0.8, Neut # (Auto) 6.9, Lymph # (Auto) 2.0, [place] # (Auto) 0.7, Eos # (Auto) 0.3, Baso # (Auto) 0.1, Sodium 140, Potassium 3.5, Chloride 111 H, Carbon Dioxide 22, Anion Gap 10.5, BUN 19, Creatinine 1.40 H, Estimated Creat Clear 79, Estimated GFR 52 L, Est GFR ( Amer) 63, Glucose 197 H, Calcium 8.2 L Assessment and Plan Assessment and plan all Dx Assessment and Plan for all problems:: Pharmacokinetic dosing service Weight: 98.792 Kilograms Vancomycin single level analysis: Current dose being given: 2250 mg Current dosing interval: 12 hrs Current infusion time (hrs): 2 Single level Trough Data: Trough level obtained: 32 mcg/ml Timing of trough - # of hrs before next dose: 0.5 Hrs (12/22/24 19:30) RANDOM VANCOMYCIN LEVEL OBTAINED: 21.7 MCG/ML (12/23/24 13:00) RANDOM VANCOMYCIN LEVEL #2 OBTAINED: 17.8 MCG/ML (12/23/24 21:03) Desired peak: 35 mcg/ml Desired trough: 12.5 mcg/ml Estimated PK Parameters: New rate constant (timbo): 0.061 hr-1 Half-life: 11.36 Hours Vd from levels: 69.15 Liters (0.7 L/kg) CLvanco=?? 4.218 L/hr Estimated New Dose and Interval Recommended dose: 1701.4 mg Recommended interval: 25.4 Hrs Recommendations: INITIAL RECOMMENDATION (12/23/24 @ 07:51) Give Vancomycin 1750 mg q 18 hrs TO START 12/23/24 AT 14:00, PREVIOUS DOSE OF 2250 MG HELD PER NILAY, WILL OBTAIN RANDOM VANCOMYCIN LEVEL FOR 12/23/24 AT 13:00 TO ENSURE PATIENT IS PROPERLY CLEARING VANCOMYCIN. NEW RECOMMENDATION (12/23/24 @ 13:00) Give Vancomycin 1500 mg q 24 hrs. ENTERED ANOTHER RANDOM VANCOMYCIN LEVEL FOR 12/23/24 AT 21:00 TO SEE IF PATIENT CONTINUES TO CLEAR VANCOMYCIN, [facility]AY FAXED WITH UPDATE SO THEY CAN ADJUST NEEDED. NILAY RECOMMENDED CONTINUING AT 1500 MG Q24H BASED ON RANDOM LEVEL OF 17.8 MCG/ML. Infuse over 2 hrs Expected Cpeak: 31.8 mcg/mL Expected Ctrough: 12.1 mcg/mL AUC 0-24 /DANIELLE Data: DANIELLE 0.5 mcg/mL:?? AUC/DANIELLE:? 985.9 DANIELLE 1.0 mcg/mL:?? AUC/DANIELLE:? 492.9 Thank you for the consult
[2024-12-23 08:02] LABS: Magnesium 2.2 mg/dl (1.6-2.3)
[2024-12-23] MEDS: INSULIN GLARGINE 100 UNITS/ML 3ML FLEXPEN 10 UNIT SUBCUT (09:05)
[2024-12-23] MEDS: INSULIN GLARGINE 100 UNITS/ML 3ML FLEXPEN 40 UNIT SUBCUT (09:11)
[2024-12-23 09:21] LABS: POC Glucose,Bedside 222 (70-110)
[2024-12-23] MEDS: BUMETANIDE 1MG/4ML VIAL 1 MG IV (10:57)
[2024-12-23 11:07] LABS: POC Glucose,Bedside 224 (70-110)
[2024-12-23] MEDS: LEVOFLOXACIN/D5W 750 MG/150 ML 750 MG/150 ML PIGGYBACK 100 MG IV (11:30)
--- NOTE | 2024-12-23 12:48 | EXP.ORTH.PN ---
Subjective *Date: 12/23/24 *Time: 12:50 Interval history: Patient states he feels better from pre-op, pain is well-controlled in foot, and antibiotics are currently running. Denies paresthesias, CP, SOB. Ortho Exam (Inpt) Vital signs and Labs for Last 24 Hours: Temp Pulse Resp BP Pulse Ox O2 Del Method O2 Flow Rate 97.8 F 98 H 18 138/83 94 L Room Air 2 12/23/24 12:00 12/23/24 12:00 12/23/24 12:00 12/23/24 12:00 12/23/24 12:00 12/23/24 12:00 12/21/24 14:40 Laboratory Results - last 24 hr 12/22/24 14:22: Stl C. cayetanensis PCR Not detected, Stool Rotavirus (PCR) Not detected, Stl Adenov F 40/41 PCR Not detected, Stool Astrovirus (PCR) Not detected, Stool Campylobacter PCR Not detected, Stl C.difficile Tox PCR Not detected, Stool Cryptosporidium PCR Not detected, Stl E.coli Shiga Tox PCR Not detected, Stool E coli O157 PCR Not detected, Stl Enterotoxigenic E PCR Not detected, Stool EPEC (PCR) Not detected, Stool EAEC (PCR) Not detected, Stl E. histolytica PCR Not detected, Stool Giardia Lamblia PCR Not detected, Stool Salmonella PCR Not detected, Stool Sapovirus (PCR) Not detected, Stl P. shigelloides PCR Not detected, Stl Shigella/EIEC PCR Not detected, St Y.enterocolitica PCR Not detected, Stool Vibrio (PCR) Not detected, Stl Vibrio cholerae PCR Not detected, Stl Norovirus GI/GII PCR Not detected 12/22/24 16:10: POC Glucose 248 H 12/22/24 19:30: Vancomycin Trough 32.0 H 12/22/24 22:32: POC Glucose 296 H 12/23/24 00:45: Vancomycin Peak 27.0 12/23/24 04:19: POC Glucose 254 H 12/23/24 05:59: WBC 10.2, RBC 3.70 L, Hgb 10.4 L, Hct 32.7 L, MCV 88.4, MCH 28.1, MCHC 31.8, RDW 13.0, Plt Count 384, MPV 9.3, Neut % (Auto) 67.8, Lymph % (Auto) 19.8, [place] % (Auto) 6.9, Eos % (Auto) 3.0, Baso % (Auto) 0.8, Neut # (Auto) 6.9, Lymph # (Auto) 2.0, [place] # (Auto) 0.7, Eos # (Auto) 0.3, Baso # (Auto) 0.1, Sodium 140, Potassium 3.5, Chloride 111 H, Carbon Dioxide 22, Anion Gap 10.5, BUN 19, Creatinine 1.40 H, Estimated Creat Clear 79, Estimated GFR 52 L, Est GFR ( Amer) 63, Glucose 197 H, Calcium 8.2 L, Magnesium 2.2 D 12/23/24 09:09: POC Glucose 222 H 12/23/24 10:57: POC Glucose 224 H I & O for Labs for Last 24 Hours: Intake & Output 12/20/24 12/21/24 12/22/24 12/23/24 23:59 23:59 23:59 23:59 Intake Total 1300 / 1300 960 / 960 460 / 460 Output Total 1400 / 1400 1150 / 1150 Balance -100 / -100 959 / 959 -690 / -690 Weight 136.078 kg 97.7 kg 97.7 kg 98.792 kg Microbiology Reports for the Last 24 Hours: Microbiology 12/20/24 01:12 Leg,Left Gram Stain - Final 12/20/24 01:12 Leg,Left Wound Culture - Preliminary Gram Positive Cocci 12/20/24 22:21 Blood Blood Culture - Preliminary NO GROWTH AFTER 48 HOURS 12/20/24 22:05 Blood Blood Culture - Preliminary NO GROWTH AFTER 48 HOURS Comment:: LLE: Dressing changed with purualent exudate seen on gauze. Wound open, roughly [id number]. Wound edges erythematous without active drainage, with purulence seen in wound. <2 sec cap refill at all toes, + motor EHL/FHL, + SILT at toes. Wound culture pending Gram stain G+ cocci Assessment and Plan *Assessment and plan (1) Abscess of skin of left ankle: Status: Acute Category: Medical Code(s): L02.416 - Cutaneous abscess of left lower limb Plan WBAT to LLE Continue wound care per Ronald Awaiting cultures for final abx recs, currently on Levofloxacin and Vanco Continue with ISS Pain control PRN Patient should follow up in office for post-op check in 1 week
[2024-12-23 14:01] LABS: Vancomycin,Random 21.7 ug/ml
[2024-12-23 17:24] LABS: POC Glucose,Bedside 234 (70-110)
--- NOTE | 2024-12-23 17:45 | PC.NURSE ---
Pt is A&Ox4. Vital signs stable on room air. IV abx infused per NOV. Vancomycin held today d/t trough level per pharmacy. Glucose levels treated per NOV. Left leg wound redressed today by Theresa with ortho. Wound care evaluation completed by PT. Dressing is C/D/I. No complaints of pain. Pt ambulating to bathroom with assistance. Pt is resting supine in bed with no further complaints voiced at this time. Call light within reach.
--- NOTE | 2024-12-23 19:51 | P.PN_ITS ---
Subjective *Date: 12/23/24 *Time: 22:11 Interval history: Patient is feeling better today. Denies any shortness of breath, chest pain, nausea or vomiting. Stable on room air. Improving edema in leg. Wound care assisting with management of edema. Discussed attempting packing versus wound on left lower leg today. Ambulating independently Medical Exam Vital signs and Labs for Last 24 Hours: Vital Signs Temp Pulse Pulse Resp BP Pulse Ox O2 Del Method 12/23/24 18:42 Room Air 12/23/24 17:00 Room Air 12/23/24 16:00 98.4 F 109 H 16 128/69 96 Room Air 12/23/24 15:00 Room Air 12/23/24 13:00 Room Air 12/23/24 12:00 97.8 F 98 H 18 138/83 94 L Room Air 12/23/24 11:00 Room Air 12/23/24 09:00 Room Air 12/23/24 08:00 Room Air 12/23/24 08:00 97.7 F 97 H 18 105/61 L 93 L Room Air 12/23/24 06:23 Room Air 12/23/24 05:00 Room Air 12/23/24 04:00 98.5 F 94 H 17 118/67 92 L Room Air 12/23/24 03:00 Room Air 12/23/24 01:00 Room Air 12/23/24 00:00 98.8 F 94 H 17 116/71 96 Room Air 12/22/24 23:00 Room Air 12/22/24 21:00 Room Air 12/22/24 20:00 Room Air 12/22/24 19:53 98.1 F 94 H 18 123/68 91 L Room Air Intake and Output 12/23/24 12/23/24 12/23/24 07:59 15:59 23:59 Intake Total 730 / 1090 360 / 1090 Output Total 800 / 1150 350 / 1150 Balance -800 / -60 380 / -60 360 / -60 Intake: Intake, Oral Amount 730 / 1090 360 / 1090 Output: Output, Urine Amount 800 / 1150 350 / 1150 Other: Number of Unmeasured Voids 0 1 1 Number of Bowel Movements 1 Weight 98.792 kg Patient Weight 12/23/24 23:59 Weight 98.792 kg Laboratory Results - last 24 hr 12/22/24 19:30: Vancomycin Trough 32.0 H 12/22/24 22:32: POC Glucose 296 H 12/23/24 00:45: Vancomycin Peak 27.0 12/23/24 04:19: POC Glucose 254 H 12/23/24 05:59: WBC 10.2, RBC 3.70 L, Hgb 10.4 L, Hct 32.7 L, MCV 88.4, MCH 28.1, MCHC 31.8, RDW 13.0, Plt Count 384, MPV 9.3, Neut % (Auto) 67.8, Lymph % (Auto) 19.8, [place] % (Auto) 6.9, Eos % (Auto) 3.0, Baso % (Auto) 0.8, Neut # (Auto) 6.9, Lymph # (Auto) 2.0, [place] # (Auto) 0.7, Eos # (Auto) 0.3, Baso # (Auto) 0.1, Sodium 140, Potassium 3.5, Chloride 111 H, Carbon Dioxide 22, Anion Gap 10.5, BUN 19, Creatinine 1.40 H, Estimated Creat Clear 79, Estimated GFR 52 L, Est GFR ( Amer) 63, Glucose 197 H, Calcium 8.2 L, Magnesium 2.2 D 12/23/24 09:09: POC Glucose 222 H 12/23/24 10:57: POC Glucose 224 H 12/23/24 13:13: Random Vancomycin 21.7 12/23/24 17:14: POC Glucose 234 H I & O for Labs for Last 24 Hours: Intake & Output 12/20/24 12/21/24 12/22/24 12/23/24 23:59 23:59 23:59 23:59 Intake Total 1300 / 1300 960 / 960 1090 / 1090 Output Total 1400 / 1400 1150 / 1150 Balance -100 / -100 959 / 959 -60 / -60 Weight 136.078 kg 97.7 kg 97.7 kg 98.792 kg Microbiology Reports for the Last 24 Hours: Microbiology 12/20/24 01:12 Leg,Left Gram Stain - Final 12/20/24 01:12 Leg,Left Wound Culture - Preliminary Gram Positive Cocci 12/20/24 22:21 Blood Blood Culture - Preliminary NO GROWTH AFTER 48 HOURS 12/20/24 22:05 Blood Blood Culture - Preliminary NO GROWTH AFTER 48 HOURS Constitutional: Present no acute distress, obese, chronically ill appearing and cooperative Head: Present atraumatic and normocephalic ENT: Present normal exam Respiratory: Present normal respiratory effort; Absent rhonchi, wheezes or crackles Cardiac: Present Reg Rate and Rhythm GI: Present soft and normal bowel sounds; Absent distention or tenderness Extremities: Present full ROM and edema (Dense woody edema of left lower extremity, 3+ to thigh. significant slough and scale of skin, wrinkling of skin.); Absent normal inspection or tenderness Skin: Absent erythema Neuro: Present Grossly Intact, alert, awake, oriented x 3 and moves all extremities Assessment and Plan *Assessment and plan (1) Sepsis: Status: Acute Qualifiers: Sepsis acute organ dysfunction status: with acute organ dysfunction Severe sepsis shock status: without septic shock Category: Medical Code(s): A41.9 - Sepsis, unspecified organism (2) Diabetes mellitus, new onset: Status: Acute Category: Medical Code(s): E11.9 - Type 2 diabetes mellitus without complications (3) Cellulitis of left lower extremity from knee to ankle: Status: Acute Category: Medical Code(s): L03.116 - Cellulitis of left lower limb (4) Obesity: Status: Acute Category: Medical Code(s): E66.9 - Obesity, unspecified (5) Poor dentition: Status: Acute Category: Medical Code(s): K08.9 - Disorder of teeth and supporting structures, unspecified Plan Jonathan Winn is a 59-year-old male who presents with worsening left lower extremity swelling, pain and was admitted for left lower extremity cellulitis, abscess. Orthopedics assisting with care. Continues to require inpatient management. Anticipate transitioning to oral antibiotics in the next day or 2. Trialing different approach to wound care today. If able to place wound VAC, will discharge home with wound VAC, if not we will consider Unna boot with long- term packing and wound. Will need outpatient follow-up and wound care. Case management assisting. 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 Patient reportedly lives at rat infested home, lives with son and friend. Patient thinks rash might have bitten him causing cellulitis. ? Orthopedic surgery consulted, s/p I&D 12/21/2024 of abscess. MRI obtained, does not show osteomyelitis in the distal fibula. Will continue conservative management with antibiotics at this time. -White count remains elevated at 12.2. Repeat CBC, CMP, magnesium ordered for the morning. - Continue IV vancomycin. Discontinue IV cefepime, transition to levofloxacin. Will complete 10 days of antibiotics for cellulitis since his MRI is negative for osteomyelitis. Culture still pending. ?Defer CTA of lower extremity due to contrast received multiple times in the past 24 to 48 hours with APOLONIA on morning labs. Will reevaluate in the coming days. As there is no plan for BKA/AKA at this time, will defer further staging of blood flow to the leg #Normocytic anemia ? B12 790, folate 8.5, iron marginally low at 40. Will administer dose of IV Venofer 200 mg in the morning to help with hemoglobin/anemia. Hemoglobin 10.0 today.. #Type 2 diabetes, new diagnosis ? Hemoglobin A1c 12.6%, likely higher in the setting of anemia. ? Increase Lantus to 40 units daily. Continue sliding scale insulin at high intensity. Glucose monitoring ACHS. - Morning glucose improved at 197. APOLONIA: BUN 19, creatinine 1.4, acceptable bump in creatinine with diuresis for his edema. Continue diuretics daily with Lasix 80 mg. Potassium 3.5. Monitor closely given recent contrast administration #Hematuria: In the absence of UTI. Will refer to urology. Full code DVT prophylaxis: Lovenox 40 mg
[2024-12-23 21:44] LABS: Vancomycin,Random 17.8 ug/ml
[2024-12-23] MEDS: VANCOMYCIN/WATER FOR INJ (PEG) 1.5 GM/300 ML PIGGYBACK IV (21:57)
[2024-12-23 22:11] LABS: POC Glucose,Bedside 223 (70-110)
--- NOTE | 2024-12-24 02:25 | PC.NURSE ---
Pt AOx4. Received IV antibiotics. Pt continually denying pain or any additional needs. Resting in bed with eyes closed. Bed is low, locked, and call light is in reach.
[2024-12-24 04:00] VITALS: BP 115/71; PULSE 85; RESP 17; TEMP 36.7; O2SAT 96; BMI 35.0
[2024-12-24 04:47] LABS: POC Glucose,Bedside 154 (70-110)
[2024-12-24] MEDS: humaLOG 100 UNITS/ML 10ML VIAL (SSI) SUBCUT ×2 (05:15→11:23)
[2024-12-24 06:59] LABS: Basophils # 0.1 K/mm3 (0-0.2); Basophils % 0.6 % (0.1-2.0); Eosinophils # 0.2 K/mm3 (0.0-0.4); Eosinophils % 1.6 % (0.1-12.0); Hematocrit 37.5 % (42.0-52.0); Lymphocytes # 2.1 K/mm3 (0.7-4.5); Lymphocytes % 19.7 % (10-50); Mean Corpuscular Hemoglobin 28.2 pg (27.0-31.2); Mean Corpuscular Volume 88.2 fl (80-94); Mean Platelet Volume 9.1 fl (7.4-10.4); Monocytes # 0.8 K/mm3 (0.1-1.0); Neutrophils # 7.6 K/mm3 (1.8-7.8); Neutrophils % 69.5 % (37.0-80.0); Nucleated Red Blood Cells # 0 10^3/uL; Nucleated Red Blood Cells % 0 %; Platelet Count 418 K/mm3 (142-424); Red Blood Count 4.25 M/mm3 (4.60-6.20); Red Cell Distribution Width-SD 41.3 fL; White Blood Count 10.9 K/mm3 (4.8-10.8)
[2024-12-24 07:27] LABS: Chloride 107 mmol/L (98-107); Sodium 141 mmol/L (136-145)
[2024-12-24 07:28] LABS: Potassium 3.4 mmoL/L (3.5-5.1)
[2024-12-24 07:30] LABS: Anion Gap 13.4 mEq/L (5-15); Blood Urea Nitrogen 17 mg/dl (9-20); Carbon Dioxide 24 mmol/L (22.0-30.0); Creatinine Clearance Estimated 83 mL/min (50-200); Estimated Glomerular Filt Rate 57 ml/min (>60); GFR (African American) 68 ML/MIN (>60)
[2024-12-24 07:31] LABS: Calcium 8.9 mg/dl (8.4-10.2); Glucose 160 mg/dl (74-100)
[2024-12-24 07:40] LABS: Erythrocyte Sedimentation Rate 65 mm/hr (0-20)
[2024-12-24 07:49] LABS: C-Reactive Protein 85.9 mg/L (0-4)
[2024-12-24 08:00] VITALS: BP 133/72; PULSE 87; RESP 20; TEMP 36.7; O2SAT 96
[2024-12-24 08:01] LABS: Procalcitonin 5.53 ng/mL (0.0-2.0)
[2024-12-24] MEDS: IRON SUCROSE COMPLEX 200 MG in 0.9 % SODIUM CHLORIDE 100 ML 220 MG IV (08:17)
[2024-12-24] MEDS: INSULIN GLARGINE 100 UNITS/ML 3ML FLEXPEN 40 UNIT SUBCUT (08:17)
--- NOTE | 2024-12-24 09:37 | P.DS_ITS ---
General Admission date:: 12/21/24 Discharge date: 12/24/24 HPI HPI HPI: A 59-year-old male with past medical history of hypertension, has not seen a physician since 2015, came to the emergency department for evaluation of left lower extremity pain and swelling, possibly triggered by a rat bite. The patient reports that left lower extremity swelling has been progressively worsening over the past couple of years with scaling skin texture. He states that today, December 20, he noticed discomfort in the lateral aspect of his left ankle and observed drainage from the area, prompting further evaluation. He notes the swelling and redness in his left leg have been chronic for years, with no recent changes in these findings, but believes the current draining ulcer may be related to a rat bite as home currently has rodent issue but does not recall being bitten. He denies fevers, chills, nausea, or vomiting. He reports no medication allergies. Treatments implemented in the emergency department include an ideal body weight- based sepsis fluid bolus with normal saline, initiation of intravenous vancomycin and piperacillin-tazobactam (Zosyn) for suspected infection, and 10 units of intravenous insulin to address hyperglycemia. CT scan of the left lower extremity obtained. Orthopedics consulted regarding treatment options left lower extremity Hospital Course Hospital Course Hospital Course: Jonathan Winn is a 59-year-old male who presents with worsening left lower extremity swelling, pain and was admitted for left lower extremity cellulitis, abscess. Orthopedics was consulted to assist with care due to severity of wound and initial concern for possible osteo of distal fibula. Wound was debrided. M RI obtained showing no osteomyelitis. Continued broad-spectrum antibiotics. Wound care assisting with management of wound. Has shown significant improvement. Overall clinically stable. Independently ambulatory. Stable to discharge home with close follow-up with orthopedics and wound care to continue to manage stasis ulceration and cellulitis. 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 Patient reportedly lives at rat infested home, lives with son and friend. Patient thinks rats might have bitten him causing cellulitis. Wound consistent with stasis ulceration, cellulitis, undermining. Orthopedics was consulted. Patient was taken for I&D 12/21/2024 of abscess. MRI was obtained. Did not show any osteomyelitis in the distal fibula. Continued broad-spectrum antibiotics with cefepime and vancomycin. Was transitioned to levofloxacin and Bactrim double strength twice daily orally to complete 10 days total for cellulitis and infection. White count normal on day of discharge at 10.9. Inflammatory markers showing improvement. Kidney function normal with BUN 17, creatinine 0.3. Initiated on basal regimen for his insulin to assist with addressing his underlying health condition that increases his risk for infections. Needs close follow-up with wound care. Appointment made. Case management assisting with transportation via the [facility]. Patient also referred to primary care to establish for treatment of his chronic health conditions and further management as an outpatient. Did not continue diuretics due to patient's euvolemic status. Does continue to have edema however recommend addressing this with lymphedema clinic and wound care. If edema getting worse, consider resuming diuretics at follow-up. #Normocytic anemia ? B12 790, folate 8.5, iron marginally low at 40. Received 1 dose of Venofer 200 mg once while admitted. Hemoglobin improved to 12 by day of discharge in the setting of diuresis. #Type 2 diabetes, new diagnosis ? Hemoglobin A1c 12.6%, likely higher in the setting of anemia. Lantus gradually increased to 50 units nightly. Having good response. Morning glucose 160 on day of discharge. Given patient's limited understanding of his health conditions and health literacy, recommend continuing just once a day insulin for now. Will need glucose monitor follow-up with PCP. Concerned that regular monitoring and adjustment was too complex at this time without further education. APOLONIA: Resolved during admission. BUN 17, creatinine 0.3 on day of discharge. Discontinue diuretics for now. Reconsider diuretics at follow-up with PCP. #Hematuria: In the absence of UTI. Would benefit from repeat urinalysis as an outpatient when patient is overall doing well and consider referral to urology. Total time spent on discharge 42 minutes in counseling, documentation, chart review, and direct care with patient. Exam Data for Last 24 hours Vital signs and Labs for Last 24 Hours: Temp Pulse Resp BP Pulse Ox O2 Del Method O2 Flow Rate 98.0 F 85 17 115/71 96 Room Air 2 12/24/24 04:00 12/24/24 04:00 12/24/24 04:00 12/24/24 04:00 12/24/24 04:00 12/24/24 06:24 12/21/24 14:40 Laboratory Results - last 24 hr 12/23/24 10:57: POC Glucose 224 H 12/23/24 13:13: Random Vancomycin 21.7 12/23/24 17:14: POC Glucose 234 H 12/23/24 21:03: Random Vancomycin 17.8 12/23/24 22:04: POC Glucose 223 H 12/24/24 04:40: POC Glucose 154 H 12/24/24 06:44: WBC 10.9 H, RBC 4.25 L, Hgb 12.0 L, Hct 37.5 L, MCV 88.2, MCH 28.2, MCHC 32.0, RDW 13.0, Plt Count 418, MPV 9.1, Neut % (Auto) 69.5, Lymph % (Auto) 19.7, Leslie % (Auto) 7.0, Eos % (Auto) 1.6, Baso % (Auto) 0.6, Neut # (Auto) 7.6, Lymph # (Auto) 2.1, Leslie # (Auto) 0.8, Eos # (Auto) 0.2, Baso # (Auto) 0.1, ESR 65 H, Sodium 141, Potassium 3.4 L, Chloride 107, Carbon Dioxide 24, Anion Gap 13.4, BUN 17, Creatinine 1.30 H, Estimated Creat Clear 83, Estimated GFR 57 L, Est GFR ( Amer) 68, Glucose 160 H, Calcium 8.9, C- Reactive Protein 85.9 H, Procalcitonin 5.53 H I & O for Last 24 hours: Intake & Output 12/21/24 12/22/24 12/23/24 12/24/24 23:59 23:59 23:59 23:59 Intake Total 1300 / 1300 960 / 960 1090 / 1090 Output Total 1400 / 1400 1150 / 1150 Balance -100 / -100 959 / 959 -60 / -60 Weight 97.7 kg 97.7 kg 98.792 kg 95.39 kg Microbiology Reports for the Last 24 Hours: Microbiology 12/20/24 01:12 Leg,Left Gram Stain - Final 12/20/24 01:12 Leg,Left Wound Culture - Final Staphylococcus aureus Constitutional Constitutional: no acute distress, obese, chronically ill appearing, disheveled and cooperative *Routine HEENT Exam Head: Present normocephalic Eye: Present EOMI and PERRL ENT: Present mucous membranes moist *Routine Neck Exam Neck: Present supple; Absent lymphadenopathy *Routine Respiratory Exam Respiratory: Present CTA bilaterally; Absent rhonchi, wheezes or crackles *Routine Cardiovascular Exam Cardiovascular: Present RRR *Routine Abdominal Exam Abdominal: Present soft and normoactive bowel sounds; Absent tenderness *Routine Rectal Exam Patient deferred: visual exam *Routine Exam Patient deferred: penile exam *Routine Extremities Exam Extremities: Present edema (chronic lymphedema in BLE, worse in left leg with woody hyperkeritosis of skin); Absent cyanosis or clubbing *Routine Skin Exam Skin: Present warm and wounds (ulceration left lateral leg overlying lateral malleolus); Absent rash *Routine Neurological Exam Neurological: Present alert, oriented X3 and moving all extremities; Absent altered mental status Results Data Completed and Pending Labs on day of discharge: Labs from last 24 hours 12/24/24 12/24/24 12/23/24 06:44 04:40 22:04 WBC 10.9 H RBC 4.25 L Hgb 12.0 L Hct 37.5 L MCV 88.2 MCH 28.2 MCHC 32.0 RDW 13.0 Plt Count 418 MPV 9.1 Neut % (Auto) 69.5 Lymph % (Auto) 19.7 Leslie % (Auto) 7.0 Eos % (Auto) 1.6 Baso % (Auto) 0.6 Neut # (Auto) 7.6 Lymph # (Auto) 2.1 Leslie # (Auto) 0.8 Eos # (Auto) 0.2 Baso # (Auto) 0.1 ESR 65 H Sodium 141 Potassium 3.4 L Chloride 107 Carbon Dioxide 24 Anion Gap 13.4 BUN 17 Creatinine 1.30 H Estimated Creat Clear 83 Estimated GFR 57 L Est GFR ( Amer) 68 Glucose 160 H POC Glucose 154 H 223 H Calcium 8.9 C-Reactive Protein 85.9 H Procalcitonin 5.53 H Random Vancomycin 12/23/24 12/23/24 12/23/24 21:03 17:14 13:13 WBC RBC Hgb Hct MCV MCH MCHC RDW Plt Count MPV Neut % (Auto) Lymph % (Auto) Leslie % (Auto) Eos % (Auto) Baso % (Auto) Neut # (Auto) Lymph # (Auto) Leslie # (Auto) Eos # (Auto) Baso # (Auto) ESR Sodium Potassium Chloride Carbon Dioxide Anion Gap BUN Creatinine Estimated Creat Clear Estimated GFR Est GFR ( Amer) Glucose POC Glucose 234 H Calcium C-Reactive Protein Procalcitonin Random Vancomycin 17.8 21.7 12/23/24 10:57 WBC RBC Hgb Hct MCV MCH MCHC RDW Plt Count MPV Neut % (Auto) Lymph % (Auto) Leslie % (Auto) Eos % (Auto) Baso % (Auto) Neut # (Auto) Lymph # (Auto) Leslie # (Auto) Eos # (Auto) Baso # (Auto) ESR Sodium Potassium Chloride Carbon Dioxide Anion Gap BUN Creatinine Estimated Creat Clear Estimated GFR Est GFR ( Amer) Glucose POC Glucose 224 H Calcium C-Reactive Protein Procalcitonin Random Vancomycin Preliminary micro results at discharge 12/20/24 22:21 Blood Culture - Preliminary Blood NO GROWTH AFTER 48 HOURS 12/20/24 22:05 Blood Culture - Preliminary Blood NO GROWTH AFTER 48 HOURS DS: Diagnosis Discharge Diagnosis (1) Sepsis: Status: Acute Code(s): A41.9 - Sepsis, unspecified organism Qualifiers: Sepsis acute organ dysfunction status: with acute organ dysfunction Severe sepsis shock status: without septic shock (2) Diabetes mellitus, new onset: Status: Acute Code(s): E11.9 - Type 2 diabetes mellitus without complications (3) Cellulitis of left lower extremity from knee to ankle: Status: Acute Code(s): L03.116 - Cellulitis of left lower limb (4) Obesity: Status: Acute Code(s): E66.9 - Obesity, unspecified (5) Poor dentition: Status: Acute Code(s): K08.9 - Disorder of teeth and supporting structures, unspecified Meds Home Medications and Allergies Home Medications ?Medication ?Instructions ?Recorded ?Confirmed ?Type insulin glargine 100 unit/mL (3 50 unit (0.5 mL) SQ DAILY #15 mL 12/24/24 Rx mL) subcutaneous pen (Lantus Solostar U-100 Insulin) levofloxacin 750 mg tablet 750 mg PO DAILY #5 tabs 12/24/24 Rx sulfamethoxazole 800 1 tab PO BID #10 tabs 12/24/24 Rx mg-trimethoprim 160 mg tablet (Bactrim DS) New Prescriptions to Start Prescriptions: insulin glargine [Lantus Solostar U-100 Insulin] Jonathan Suero levofloxacin Jonathan Suero sulfamethoxazole-trimethoprim [Bactrim DS] Jonathan Suero Allergies Allergy/AdvReac Type Severity Reaction Status Date / Time No Known Allergies Allergy Verified 12/20/24 21:54 Discharge Plan Disposition Patient Disposition: Home, Self-Care Condition: Fair Discharge Order Discharge Orders: Discharge Order (Routine); Ordered 12/24/24 Ordered By: Jonathan Suero Follow up Plan Follow up with: Michael Kelley DO [Staff Physician] - 01/07/25 9:30 am Valerio Petty MD [Staff Physician] - 12/31/24 1:40 pm Prescriptions/Medication Reconciliation: New insulin glargine [Lantus Solostar U-100 Insulin] 100 unit/mL (3 mL) Insulin Pen 50 unit SQ DAILY Qty: 15 0RF levofloxacin 750 mg tablet 750 mg PO DAILY Qty: 5 0RF sulfamethoxazole-trimethoprim [Bactrim DS] 800-160 mg tablet 1 tab PO BID Qty: 10 0RF Rx Instructions: start evening of 12/24/24 Problem Reconciliation Problems Reviewed?: Yes Patient Discharge Instructions ACTIVITY: Continue current activity DIET: continue same diet Additional Instructions: Appointment on 12/25/24 at 3 PM with wound care at [facility]. Patient Instructions: Cellulitis, DI for Incision and Drainage of a Skin Abscess, DI for Surgical Site Infection, DI for Sepsis -- Adult, Stop Light Infection Print Language: [place] Providers Primary Care Provider: Provider,Referral Admit Provider: Kevin Lund Attending Provider: Kevin Lund
[2024-12-24 11:31] LABS: POC Glucose,Bedside 176 (70-110)
--- NOTE | 2024-12-24 12:11 | PC.NURSE ---
extensive education regarding dietary and diabetes management given to patient and family prior to discharge. return demonstration regarding insulin administration done by both son and pt.
--- NOTE | 2024-12-25 10:19 | SW/DCPLANNER ---
Spoke with patient's on the phone. Patient's stated that he is doing ok. Patient's stated that they were able to get his medicine picked up from clinic pharmacy. Patients stated that they are aware of his upcoming appointments. Patient's stated that they have no concerns or questions at this time. Felisa BAIRES Sql Consultant
== END 2024-12-24 12:14 | disposition home or self-care (01) | DRG 602 ==
LOC: ER 23:02 → 2ND 12-21 00:02
PROVIDERS: Internal Medicine Adolescent Medicine; Nurse Practitioner Family; Orthopaedic Surgery; Physician Assistant; Admitting Provider Student in an Organized Health Care Education/Training Program; Emergency Provider Emergency Medicine; Visit Provider Student in an Organized Health Care Education/Training Program
PROC: 0HBNXZZ Excision of Left Foot Skin, External Approach (ICD-10-PCS; principal; 2024-12-21 12:00)
DX: L03.116 Cellulitis of left lower limb (principal); A41.9 Sepsis, unspecified organism; Z59.19 Other inadequate housing; N17.9 Acute kidney failure, unspecified; L02.416 Cutaneous abscess of left lower limb; I89.0 Lymphedema, not elsewhere classified; B95.61 Methicillin susceptible Staphylococcus aureus infection as the cause of diseases classified elsewhere; E11.65 Type 2 diabetes mellitus with hyperglycemia; I10 Essential (primary) hypertension; F17.210 Nicotine dependence, cigarettes, uncomplicated; D64.9 Anemia, unspecified; W53.11XA Bitten by rat, initial encounter; K08.9 Disorder of teeth and supporting structures, unspecified; Z82.49 Family history of ischemic heart disease and other diseases of the circulatory system; E86.0 Dehydration; E66.9 Obesity, unspecified; Z68.35 Body mass index [BMI] 35.0-35.9, adult; R31.9 Hematuria, unspecified; Z55.6 Problems related to health literacy; I83.023 Varicose veins of left lower extremity with ulcer of ankle
CPT/HCPCS: 36415; 73701; 73720; 75635; 80048; 80053; 80061; 80202; 81001; 82009; 82607; 82728; 82746; 82803; 82962; 83036; 83540; 83550; 83605; 83735; 83880; 84100; 84145; 85025; 85651; 86140; 87040; 87070; 87077; 87186; 87205; 87506; 93306; 93971; 97163; 99285; A9576; J1100; J1756; J1939; J1956; J2250; J2405; J2543; J3010; J3370; J3372; J3475; J7120; Q9967

== ENCOUNTER 2025-01-05 15:46 | Outpatient (RCR) | payer MEDICAID, SELFPAY ==
--- NOTE | 2025-01-05 17:39 | HMH.PTOPWND ---
Rehab Outpt Wound Evaluation Rehab OP Wound Evaluation Start: 01/05/25 17:23 Freq: Status: Active Protocol: Document 01/05/25 17:23 MARY (Rec: 01/05/25 17:38 PHORERI [id number]) E-signed By Ronald Wang, PT Subjective/History History History This is the initial PT wound care eval for Jonathan Winn, 59 yowm who presents with L lateral ankle wound present overall for several mos, but now S/P I&D performed 12/21. He reports minimal discomfort at this time with dressing in place from last MD visit. He continues to have significant hyperkeratosis of the L LE due to chronic L LE lymphedema. He also has new diagnosis of DM. Subjective Subjective He reports pain with dressing changes, but did not rate at this time. Severe fibrotic edema noted throughout L LE with decreased hyperkeratosis vs most recent hospitalization due to consistent compression therapy to the L LE. Wound Eval Wound Left Lateral Ankle Wound Type unknown etiology Is This a Chronic Wound Yes Wound Length (cm) 3.4 Wound Width (cm) 2.8 Wound Depth (cm) 2.5 Wound Bed Appearance Beefy Red Wound Margins Description Well Defined Surrounding Tissue Appearance [place] Edema Type Non-Pitting Edema Degree 3+ Query Text:1+ Trace, Barely Detectable, Rebound 15-30 seconds 2+ Moderate, Slight Indentation, Rebound 10-20 seconds 3+ Deep, Deeper Indentation, Rebound > 30 seconds 4+ Very Deep, Rebound > 60 seconds Edema Appearance Tight,Hard Drainage Description Serosanguineous Drainage Amount Moderate Drainage Odor No Odor Wound Topical Solution/Irrigant Saline Irrigant Packing Type Woundvac Sponge Primary Dressing Transparent Drape Wound Secondary Dressing Type Gauze Roll/Wrap,Elastic Bandage Wound Debridement Method Forceps,Gauze,Mechanical Wound Debridement Amount of Tissue Minimal Removed Dressing Change Patient Tolerance Tolerated Well [place] Wound Assessment Tool Assessment Wound size 2=Length x Width 4--<16 sq cm Wound depth 3=Full thickness skin loss involving damage or necrosis of Wound edges 3=Well-defined, not attached to wound base Wound undermining 1=None present Necrotic tissue type 1=Non visible Necrotic tissue amount 1=None visible Exudate type 3=Serosanguineous: thin, watery, pale red/pink Exudate amount 4=Moderate Skin color surrounding wound 1=[place] or normal for ethnic group Peripheral tissue edema 5=Crepitus and/or pitting edema extends > or = 4 cm around wound Peripheral tissue induration 1=None present Granulation tissue 2=Bright, beefy red;75% to 100 % of wound filled &/or tissue overgrowth Epithelialization 5= < 25% wound covered Wound assessment total score 32 Wound Problems/Impairments Impairments Problems/Impairmments Impaired Endurance,Impaired Gait Pattern,Impaired Walking, Impaired Shower/Bathing, Impaired Household Care, Increased Edema,Lymphedema Present,Wound Care Needs, Subjective C/O Pain,Impaired Self Care/Self Management Prognosis Rehab Potential Good Comment Skilled therapy is indicated for improved wound healing with wound VAC dressing placement in order to return to PLOF with all ADLs Clinical Impression Consistent with Diagnosis Yes Short Term Goals Number of Weeks 4 Decrease Wound Area Yes: by 25% Healthcare Receptionist Goals Number of Weeks 8 Decreased Palpation Tenderness Yes: 0/4 L lateral ankle Decrease Wound Area Yes: by 75% Outpatient Therapy Plan of Care Treatment Plan May Include Therapeutic Exercise Including Home Yes Exercise Program Manual Therapy Techniques Yes Neuromuscular Re-education Yes Therapeutic Activities to Return to Yes Previous Functional/Work Level Wound Care Yes Eval/Re-Eval Yes Frequency Times per week 2 Duration Number of Weeks 8 Addendums This patient is a candidate for social No or vocational rehab? Patient/Guardian verbally acknowledges Yes understanding of treatment program and consents to further treatment? Patient/Guardian verbally acknowledges Yes understanding of diagnosis, prognosis and goals for treatment? Eval Complexity PT Charges 48207 - High Complexity PHYSICIAN CERTIFICATION: I certify the specified therapy services for Jonathan Winn are required, authorized, and reviewed every 30 days.
== END 2025-01-05 23:59 | disposition home or self-care (01) ==
LOC: PT 15:46
PROVIDERS: PCP Family Medicine; Visit Provider Orthopaedic Surgery
DX: L02.416 Cutaneous abscess of left lower limb (principal)
CPT/HCPCS: 97163

== ENCOUNTER 2025-02-04 09:00 | Outpatient (RCR) | payer MEDICAID, SELFPAY ==
--- NOTE | 2025-02-02 11:38 | HMH.RHREAS ---
Rehab Reassessment Rehab OP Re-assessment Start: 01/12/25 17:14 Freq: Status: Active Protocol: Document 02/02/25 11:21 PHOLamineERI (Rec: 02/02/25 11:38 PHORNE [id number]) E-signed By Ronald Wang, PT Madhuri Wound Assessment Tool Assessment Wound size 2=Length x Width 4--<16 sq cm Wound depth 3=Full thickness skin loss involving damage or necrosis of Wound edges 2=Distinct, outline clearly visible, attached, even with wound base Wound undermining 1=None present Necrotic tissue type 1=Non visible Necrotic tissue amount 1=None visible Exudate type 3=Serosanguineous: thin, watery, pale red/pink Exudate amount 3=Small Skin color surrounding wound 1=[place] or normal for ethnic group Peripheral tissue edema 3=Non-pitting edema extends > or= to 4 cm around wound Peripheral tissue induration 1=None present Granulation tissue 2=Bright, beefy red;75% to 100 % of wound filled &/or tissue overgrowth Epithelialization 2=75% to < 100% wound covered &/or epithelial tissue extends > 0.5cm Wound assessment total score 25 Rehab Re-assessment Subjective Subjective Pt has no c/o pain or tenderness to palpation with dressing changes at this time. He continues to have diffuclty with chronic L LE Lymphedema, but his hyperkeratosis has significantly improved. Objective Objective Notes L lateral foot wound: L= 2.0 cm, W= 2.0 cm, D= 0.1 cm. Healthy granulation tissue noted throughout the wound bed this date. Wound surface area healed: 58% since IE. Assessment Progress Assessment Progressing as Expected Assessment Notes Pt has shown significant improvement in overall wound tissue type and decreased surface area. Skilled therapy services remains indicated to continue wound healing in order to return pt to PLOF with all ADLs and mobility. Patient goals met ST/1 LT/2 Plan Plan Continue per initial POC. Frequency of Therapy 2 x/wk Duration of therapy 4 wks Time and Billing Re-Eval Time 10 Re-Eval Billing Units 1 Charge for PT reassessment? Yes PHYSICIAN CERTIFICATION: I certify the specified therapy services for Jonathan Winn are required, authorized, and reviewed every 30 days.
== END 2025-02-04 23:59 | disposition home or self-care (01) ==
LOC: PT 09:00
PROVIDERS: PCP Family Medicine; Visit Provider Orthopaedic Surgery
DX: L02.416 Cutaneous abscess of left lower limb (principal)
CPT/HCPCS: 29580; 97164; 97597; 97605

== ENCOUNTER 2025-02-18 15:31 | Outpatient (CLI) | payer MEDICAID, SELFPAY ==
[2025-02-18 19:33] LABS: Albumin Level 3.4 g/dl (3.5-5.0); Chloride 110 mmol/L (98-107); Potassium 4.7 mmoL/L (3.5-5.1); Sodium 137 mmol/L (136-145)
[2025-02-18 19:35] LABS: Blood Urea Nitrogen 27 mg/dl (9-20); Estimated Glomerular Filt Rate 86 ml/min (>60); GFR (African American) 105 ML/MIN (>60)
[2025-02-18 19:36] LABS: Alanine Aminotransferase 30 U/L (12-78); Albumin/Globulin Ratio 0.6 (1.1-1.8); Alkaline Phosphatase 102 U/L (38-126); Anion Gap 16.7 mEq/L (5-15); Aspartate Amino Transferase 39 U/L (17-59); Bilirubin,Total 0.3 mg/dl (0.2-1.3); Calcium 11.3 mg/dl (8.4-10.2); Carbon Dioxide 15 mmol/L (22.0-30.0); Cholesterol 300 mg/dl (140-200); Globulin 5.9 g/dL (1.3-3.2); Glucose 177 mg/dl (74-100); Total Protein,Serum 9.3 g/dl (6.3-8.2)
[2025-02-18 19:37] LABS: HDL Cholesterol 30 mg/dl (40-60)
[2025-02-18 19:47] LABS: Direct LDL Cholesterol 110.86 mg/dL (100-129)
[2025-02-18 19:51] LABS: Triglycerides 642 mg/dl (30-150)
== END 2025-02-18 23:59 | disposition home or self-care (01) ==
LOC: LAB.DROPOF 02-19 23:49
PROVIDERS: PCP Family Medicine; Visit Provider Family Medicine
DX: E11.9 Type 2 diabetes mellitus without complications (principal)
CPT/HCPCS: 80053; 80061

== ENCOUNTER 2025-02-22 08:00 | Outpatient (RCR) | payer MEDICAID, SELFPAY | END 2025-02-22 23:59 | disposition home or self-care (01) | LOC: PT 08:00 | PROVIDERS: PCP Family Medicine; Visit Provider Orthopaedic Surgery | DX: L02.416 Cutaneous abscess of left lower limb (principal) | CPT/HCPCS: 97597 ==

== ENCOUNTER 2025-03-24 06:46 | Outpatient (CLI) | payer MEDICAID, SELFPAY ==
--- NOTE | 2025-03-24 | CA_ITS ---
APPROVED REPORT Exam: Pharmacologic Technologist: Sofie Newell Ht: 5 ft 3 in Wt: 219 lbs BSA: 2.01 m2 HR: 82 bpm BP: 144/97 mmHg Stress Test Details Test: Lexiscan HR Resting HR: 82 bpm Max Heart Rate (APMHR): 161.604900 bpm Max HR Achieved: 107 bpm Target HR (85% APMHR): 136.869504 bpm % of APMHR: 66.46 Recovery HR: 107 bpm BP Resting BP: 144.0/97.0 mmHg Max BP: 144.0/97.0 mmHg Recovery BP: 140.0/97.0 mmHg ECG Resting ECG: Normal sinus rhythm Stress ECG Conclusion Symptoms: None Arrhythmias/Ectopy: None ST-T Changes: < 1.[address] segment changes. Conclusion: Non-diagnostic Lexiscan stress. Electronically signed by : Nadya Calderón MD 03/27/2025 15:34:56
--- NOTE | 2025-03-24 07:00 | NM_ITS ---
APPROVED REPORT Exam: Nuclear Stress Test Indication: soa..fatigue Patient Location: Outpatient Stress Tech: Sofie Newell [place] Tech:HELADIO Moore RT(R)(N) Ht: 5 ft 3 in Wt: 219 lbs HR: 82 bpm BP: 144/97 mmHg BSA: 2.01 m2 TID: 1.36 BMI: 38.7 History: soa..fatigue Procedure: Patient received 0.4 mg of intravenous Lexiscan, resting heart rate 82 bpm, resting blood pressure 144/97 mmHg, with Lexiscan maximum heart rate achieved was 104 bpm which is 85 % of the maximum predicted heart rate and blood pressure was 136/84 mmHg. With Lexiscan, patient denied any complaint of chest pain. Cardiac Stress and Resting SPECT Images: Cardiac Stress and Resting SPECT images were obtained using technetium 99m Myoview 32.8 mCi stress and 10.33 mCi at rest. Resting and stress imaging in supine and prone positions demonstrate medium size, moderate, partially reversible perfusion defects in the basal to mid inferior and basal lateral LV campos. There is increase in transient ischemic dilatation ratio (TID 1.36), which may be suggestive of possible multivessel disease or balanced ischemia. Gated imaging demonstrates normal global LV systolic function. LVEF is calculated at 57%. Conclusion: Medium size, moderate, partially reversible perfusion defects in the basal to mid inferior and basal lateral LV campos. Findings are suggestive of partial reversible ischemia. There is increase in transient ischemic dilatation ratio (TID 1.36), which may be suggestive of possible multivessel disease or balanced ischemia. Gated imaging demonstrates normal global LV systolic function. LVEF is calculated at 57%. Electronically signed by : Nadya Calderón MD 03/24/2025 11:55:57
[2025-03-24] MEDS: ISOTOPE MYOVIEW (PER STUDY) 1 DOSE IV (09:11)
[2025-03-24] MEDS: SODIUM CHLORIDE 0.9% 10ML SYR (RAD ONLY) 10 ML IV ×2 (09:11)
== END 2025-03-24 23:59 | disposition home or self-care (01) ==
LOC: RAD 06:47
PROVIDERS: PCP Family Medicine; Visit Provider Family Medicine
DX: R94.39 Abnormal result of other cardiovascular function study (principal); E11.9 Type 2 diabetes mellitus without complications; E78.5 Hyperlipidemia, unspecified; Z72.0 Tobacco use; R06.09 Other forms of dyspnea; R06.02 Shortness of breath; R53.83 Other fatigue
CPT/HCPCS: 78452; 93016; 93017; 93018; A9502; J2785

== ENCOUNTER 2025-03-29 07:51 | Outpatient (CLI) | payer MEDICAID, SELFPAY ==
--- NOTE | 2025-03-29 08:00 | CT_ITS ---
FINAL REPORT CLINICAL HISTORY: lung cancer screening. smoker 1ppd for 26 years FINDINGS: CTDI vol (mGy): 2.90 DLP: 102.[address] images of the chest were obtained using the low-dose protocol for screening. There is no evidence of mediastinal or hilar mass or adenopathy. No axillary mass or adenopathy is identified. On the lung window images, a nodule is seen on image 48 series 3 measuring 5 mm. Lungs are otherwise clear. Gynecomastia is noted. Limited imaging of the upper abdomen demonstrates cholelithiasis and left nephrolithiasis. There is a left renal pelvic stone without hydronephrosis. IMPRESSION: 5 mm nodule in the lingula. Cholelithiasis and nephrolithiasis. Lung RADS category 1S . Recommend 12 month followup low-dose CT for further evaluation. Reviewed, Interpreted and Dictated by Preethi Townsend MD Transcribed by Bethanie Guerin Authenticated and [facility]
--- NOTE | 2025-03-29 08:30 | US_ITS ---
FINAL REPORT CLINICAL HISTORY: Epigastric hernia FINDINGS: Directed ultrasound imaging of the epigastric region demonstrates a 2.6 abdominal wall defect. Fat extends through the defect without involvement of bowel. Hernia sac measures up to 3.3 cm. IMPRESSION: Upper abdominal wall hernia containing fat corresponding to palpable abnormality. Reviewed, Interpreted and Dictated by Preethi Townsend MD Transcribed by Christen Draper Authenticated and [facility]
== END 2025-03-29 23:59 | disposition home or self-care (01) ==
LOC: RAD 07:52
PROVIDERS: PCP Family Medicine; Visit Provider Family Medicine
DX: K80.20 Calculus of gallbladder without cholecystitis without obstruction (principal); N20.0 Calculus of kidney; K43.9 Ventral hernia without obstruction or gangrene; R91.1 Solitary pulmonary nodule; F17.210 Nicotine dependence, cigarettes, uncomplicated; Z12.2 Encounter for screening for malignant neoplasm of respiratory organs
CPT/HCPCS: 71271; 76705

== ENCOUNTER 2025-04-13 08:27 | Day surgery (SDC) | payer MEDICAID, SELFPAY ==
[2025-04-13] VITALS (12 sets, daily range): BP systolic 97–118; BP diastolic 56–79; PULSE 76–111; RESP 18–20; O2SAT 91–97; BMI 38.0
--- NOTE | 2025-04-13 07:18 | IR_ITS ---
APPROVED REPORT Patient Location: Outpatient Inspector Machine Parts: HELADIO Maki RT (R) PROCEDURES Left heart catheterization Left ventriculogram Selective coronary angiogram INDICATION Abnormal Myoview, Angina pectoris Informed consent was obtained prior to the procedure. COMPLICATIONS None Estimated Blood Loss: Less than 10 mls TECHNIQUE One percent lidocaine used to anesthetize the right anterior aspect of the wrist. The right radial artery was accessed via the Seldinger technique. A 6 Tristanian sheath was placed in the right radial artery. 2.5 mg of Verapamil, 800 mcg of nitroglycerin, 1mg Lidocaine and 5000 U Heparin were given through the arterial sheath. The JL3 catheter was also used to perform left heart catheterization, left ventriculogram and selective coronary angiogram. At the end of the procedure the sheath was removed good hemostasis was achieved using Traclet band, patient was transferred to the postop holding area in stable condition. ANGIOGRAPHIC RESULTS The left main artery Normal The left anterior descending artery Has mild diffuse 10% luminal regularities The circumflex artery Normal The right coronary artery Dominant with mild distal 10% luminal regularities The [place] ventriculogram reveals Hyperdynamic at 80% The left ventricular end-diastolic pressure 25 mmHg IMPRESSION Mild nonflow limiting luminal regularities Hyperdynamic ventricle with elevated LVEDP PLAN 1. Medical management Electronically signed by : Alpesh Nesbitt MD 04/13/2025 10:42:54
[2025-04-13 09:02] LABS: Chloride 109 mmol/L (98-107); Hematocrit 40.7 % (42.0-52.0); Hemoglobin 13.7 g/dL (14.1-18.0); Immature Granulocytes % 0.1 %; Mean Corpuscular HGB Conc 33.7 g/dL (31.8-35.4); Mean Corpuscular Hemoglobin 28.4 pg (27.0-31.2); Mean Corpuscular Volume 84.4 fl (80-94); Nucleated Red Blood Cells % 0 %; Platelet Count 305 K/mm3 (142-424); Red Blood Count 4.82 M/mm3 (4.60-6.20); Red Cell Distribution Width-SD 41.3 fL; White Blood Count 10.8 K/mm3 (4.8-10.8)
[2025-04-13 09:03] LABS: Potassium 4.5 mmoL/L (3.5-5.1); Sodium 135 mmol/L (136-145)
[2025-04-13 09:06] LABS: Anion Gap 17.5 mEq/L (5-15); Blood Urea Nitrogen 28 mg/dl (9-20); Calcium 9.6 mg/dl (8.4-10.2); Carbon Dioxide 13 mmol/L (22.0-30.0); Creatinine Clearance Estimated 122 mL/min (50-200); Creatinine,Serum 0.90 mg/dl (0.66-1.25); Estimated Glomerular Filt Rate 86 ml/min (>60); GFR (African American) 105 ML/MIN (>60); Glucose 189 mg/dl (74-100)
[2025-04-13] MEDS: NITROGLYCERIN 800MCG/8ML SYR (CATH LAB) 800 MCG IA (10:08)
[2025-04-13] MEDS: 0.9 % SODIUM CHLORIDE 500 ML 25 ML IV (10:08)
[2025-04-13] MEDS: HEPARIN 1,000 UNITS/ML 10ML VIAL (CATH LAB) 5000 UNIT IV (10:08)
[2025-04-13] MEDS: LIDOCAINE 1% 10ML MDV 10 ML IJ (10:08)
[2025-04-13] MEDS: HEPARIN 1,000 UNITS/500ML NS (CATH LAB) 3000 UNIT IV (10:09)
[2025-04-13] MEDS: VERAPAMIL 2.5MG/ML 2ML VIAL 2.5 MG IV (10:09)
[2025-04-13] MEDS: MIDAZOLAM HCL 1MG/ML 5ML VIAL 1 MG IV (10:40)
[2025-04-13] MEDS: FENTANYL 100MCG/2ML VIAL 50 MCG IV (10:40)
[2025-04-13] MEDS: IOPAMIDOL-370 (76%);100ML BOTTLE 60 ML IV (11:14)
== END 2025-04-13 13:13 | disposition home or self-care (01) ==
LOC: CATHLAB 08:28
PROVIDERS: PCP Family Medicine; Visit Provider Internal Medicine
PROC: 4A023N7 Measurement of Cardiac Sampling and Pressure, Left Heart, Percutaneous Approach (ICD-10-PCS; CPT 93452; principal; 2025-04-13 07:15)
DX: I25.119 Atherosclerotic heart disease of native coronary artery with unspecified angina pectoris (principal); R93.1 Abnormal findings on diagnostic imaging of heart and coronary circulation; I51.7 Cardiomegaly; E11.9 Type 2 diabetes mellitus without complications; R06.02 Shortness of breath; R42 Dizziness and giddiness; R60.9 Edema, unspecified; R20.0 Anesthesia of skin; R53.83 Other fatigue; E66.9 Obesity, unspecified; Z68.28 Body mass index [BMI] 28.0-28.9, adult; Z79.84 Long term (current) use of oral hypoglycemic drugs; Z79.899 Other long term (current) drug therapy; Z82.49 Family history of ischemic heart disease and other diseases of the circulatory system; F17.200 Nicotine dependence, unspecified, uncomplicated; I10 Essential (primary) hypertension; E78.5 Hyperlipidemia, unspecified; G62.9 Polyneuropathy, unspecified
CPT/HCPCS: 80048; 85025; 93452; 93458; 99152; C1725; C1769; J1200; J1644; J2003; J3010; J7040; Q9967

== ENCOUNTER 2025-04-20 11:00 | Outpatient (CLI) | payer MEDICAID, SELFPAY ==
[2025-04-20 14:40] LABS: Microscopic, Urine URINE MICROSCOPIC (MICROSCOPIC)
[2025-04-20 14:55] LABS: Bilirubin,Urine Negative (Negative); Color,Urine YELLOW (Yellow); Glucose,Urine (UA) 2+ (Negative); Ketones,Urine Negative (Negative); Leukocyte Esterase,Urine Negative (Negative); PH,Urine 5.5 (5.0-8.5); Protein,Urine Negative (Negative); Specific Gravity, Urine 1.025 (1.005-1.030); Urobilinogen,Urine 0.2 EU/dl (0.2)
[2025-04-20 16:14] LABS: Bacteria,Urine Trace /lpf
[2025-04-20 16:15] LABS: Squamous Epithelial Cell,Urine Occasional #/hpf (0-5); Uric Acid Crystals,Urine 3+ /lpf
== END 2025-04-20 23:59 | disposition home or self-care (01) ==
LOC: LAB.DROPOF 04-21 12:12
PROVIDERS: PCP Family Medicine; Visit Provider Family Medicine
DX: N39.0 Urinary tract infection, site not specified (principal); E11.9 Type 2 diabetes mellitus without complications
CPT/HCPCS: 81001; 82043; 82570

== ENCOUNTER 2025-05-05 08:26 | Outpatient (CLI) | payer MEDICAID, SELFPAY ==
--- NOTE | 2025-05-05 08:45 | CT_ITS ---
FINAL REPORT TECHNIQUE: Pre-and postcontrast axial imaging of the abdomen and pelvis was obtained.This study was performed with techniques to keep radiation doses as low as reasonably achievable, (ALARA). Individualized dose reduction technique using automated exposure control or adjustment of mA and/or kV according to the patient's size were employed. CLINICAL HISTORY: bloody urine COMPARISON: None FINDINGS: The lung bases are clear. The liver is homogeneous. No focal liver lesion. Gallstones are present in the gallbladder. The spleen, adrenal glands, and pancreas are unremarkable. There are multiple stones within the left renal collecting system including staghorn calculus in the lower pole and a 13 mm stone at the right renal pelvis. No ureteral stone identified. No hydronephrosis. Very small stones are seen layering in the urinary bladder. A left renal cyst is present. No solid renal mass. GI tract demonstrates no evidence of small bowel obstruction. There is no acute GI abnormality. The appendix is normal. There is no lymphadenopathy or ascites. No acute osseous abnormalities identified. IMPRESSION: Multiple nonobstructing left renal stones. No obstructing stones. Small stones layering in the urinary bladder. Gallstones in the gallbladder. Reviewed, Interpreted and Dictated by Esme Rasheed MD Transcribed by Christen Draper Authenticated and [facility]
[2025-05-05] MEDS: IOPAMIDOL-370 (76%);100ML BOTTLE 75 ML IV (08:48)
[2025-05-05] MEDS: SODIUM CHLORIDE 0.9% 10ML SYR (RAD ONLY) 10 ML IV (08:48)
== END 2025-05-05 23:59 | disposition home or self-care (01) ==
LOC: RAD 08:26
PROVIDERS: PCP Family Medicine; Visit Provider Family Medicine
DX: N20.0 Calculus of kidney (principal); K80.20 Calculus of gallbladder without cholecystitis without obstruction; N21.0 Calculus in bladder
CPT/HCPCS: 74178; Q9967

== ENCOUNTER 2025-06-08 09:00 | Outpatient (RCR) | payer MEDICAID, SELFPAY ==
--- NOTE | 2025-05-28 11:47 | HMH.OPLYMPH ---
Rehab Lymphedema Evaluation Rehab Lymphedema Evaluation Start: 05/28/25 11:32 Freq: Status: Active Protocol: Document 05/28/25 11:32 MARY (Rec: 05/28/25 11:47 PHORERI [id number]) E-signed By Ronald Wang, PT Subjective/History History History This is the initial PT lymphedema eval for Jonathan Winn, 59 yowm who presents with c/o increased L LE edema worse x 5-6 mos, but chronically present for many years. He was previously treated in our clinic for L lateral ankle wound which had required surgical debridement. He has long hx of significant fibrotic edema to the L LE with severe hyperkeratosis, which remains present, but is improved since his discharge from wound care. He has PMH of poorly controlled DM, CAD, abdominal hernia, HLD, lymphedema. Subjective Subjective Currently he reports pain In L foot 5/10 which is fairly constant. He does suffer from peripheral neuropathy at baseline. 2+ pitting edema noted to L foot with SEVERE fibrotic (hard, woody) edema throughout the L LE. Moderate to severe erythema noted the L lower leg. Significant hyperkeratosis remains throughout L lower leg as well. L lateral calf wound L2.0 cm, W 1.5 cm, D 0.1 cm noted with small amt of serosanguineous drainage present without necrotic tissue in the wound bed. Lymphedema Eval Classification of Lymphedema Primary Lymphedema Yes Secondary Lymphedema Yes: worse post surgery x 6 mo Stemmer's sign Stemmer's Sign yes Stage of Lymphedema Lymphedema stages Stage III (Non-pitting, fibrosis and sclerosis, skin changes) Skin Changes Dry Skin Yes Taut, Shiny Skin Yes Skin Folds Yes Hyperkeratosis Yes Redness Yes Brittle Uneven Nails Yes Discoloration of Yes Skin Other Changes Yes Pain Scale Pain Scale (0-10) 5 Affected Extremities Areas Affected by Left Lower Extremity Lymphedema/Edema Lower Extremity Measurements Left MTP Measurement (cm) 26.2 Heel Measurement (cm 32.7 ) 10 cm Proximal to 45.9 Lateral Malleoli Measurement (cm) 20 cm Proximal to 56.6 Lateral Malleoli Measurement (cm) 30 cm Proximal to 57.3 Lateral Malleoli Measurement (cm) 40 cm Proximal to 46.9 Lateral Malleoli Measurement (cm) 50 cm Proximal to 0 Lateral Malleoli Measurement (cm) 60 cm Proximal to 0 Lateral Malleoli Measurement (cm) Lower Extremity 265.6 Measurement Total ( cm) Wound Problems/Impairments Impairments Problems/ Palpation Tenderness,Impaired Walking,Impaired Standing Impairmments ,Impaired Sitting,Impaired Dressing,Impaired Shower/ Bathing,Impaired Household Care,Impaired Recreational Activities,Increased Edema,Lymphedema Present,Wound Care Needs,Subjective C/O Pain,Impaired Self Care/Self Management Prognosis Rehab Potential Good Comment Skilled therapy is indicated to aid reduction of overall lymphedema in order to assist pt return to improved QOL. Clinical Impression Consistent with Yes Diagnosis Lymphedema Patient Goals Lymphedema Patient Goals Lymphedema Short in 4 wks pt will: Term Patient Goals 1) Reduce pitting edema to 1+ in L LE 2) Reduce circumferential measurements to L LE by 5 cm 3) Reduce L LE fibrotic edema to MODERATE Lymphedema [employer] in 8 wks pt will: Patient Goals 1) Reduce pitting edema to 0 in L LE 2) Reduce circumferential measurements to L LE by 20 cm 3) Be independent with donning/doffing of compression garments 4) be independent with Lymphedema management via HEP 5) Reduce L LE fibrotic edema to MILD Outpatient Therapy Plan of Care Treatment Plan May Include Therapeutic Exercise Yes Including Home Exercise Program Manual Therapy Yes Techniques Neuromuscular Re- Yes education Therapeutic Yes Activities to Return to Previous Functional/Work Level ADL/Self Care Yes Education Orthotics/Bracing/ Yes Splinting Vasopneumatic Yes Compression Pump Manual Lymphatic Yes Drainage Eval/Re-Eval Yes Frequency Times per week 2 Duration Number of Weeks 8 Addendums This patient is a No candidate for social or vocational rehab ? Patient/Guardian Yes verbally acknowledges understanding of treatment program and consents to further treatment? Patient/Guardian Yes verbally acknowledges understanding of diagnosis, prognosis and goals for treatment? Eval Complexity PT Charges 06388 - High Complexity PHYSICIAN CERTIFICATION: I certify the specified therapy services for Jonathan Winn are required, authorized, and reviewed every 30 days.
== END 2025-06-08 23:59 | disposition home or self-care (01) ==
LOC: PT 09:00
PROVIDERS: Visit Provider Family Medicine
DX: I89.0 Lymphedema, not elsewhere classified (principal)
CPT/HCPCS: 97140; 97163

== ENCOUNTER 2025-07-01 09:00 | Outpatient (RCR) | payer MEDICAID, SELFPAY ==
--- NOTE | 2025-06-25 12:12 | HMH.RHREAS ---
Rehab Reassessment Rehab OP Re-assessment Start: 06/10/25 15:30 Freq: Status: Active Protocol: Document 06/25/25 12:01 MARY (Rec: 06/25/25 12:12 PHORNE [id number]) E-signed By Ronald Wang, PT Rehab Re-assessment Subjective Subjective Pt reports he feels considerably better overall with heaviness and swelling in his L LE. He does continue to c/o intermittent shooting pains in his L lower leg and foot. Pt has received his compression garments, but has not been able to use them independently yet. Objective Objective Notes Circumferential Measurements: L LE total is 227.2 cm which is -38.4 cm since IE. Edema: No pitting edema noted at this time in the L LE, MILD fibrotic edema remains throughout L lower leg. Erythema: MILD erythema noted to L lower leg with hemosiderin staining noted. Hyperkeratosis: Pt with minimal hyperkeratosis noted to lateral L calf at this time. Pain: 4/10 intermittently in the L foot and lower leg. Assessment Progress Assessment Progressing as Expected Assessment Notes Pt has been present for 6 visits since his initial evaluation. He has shown considerable reduction of overall edema in his L LE based on circumferential measurements. He has shown improvement in ability to ambulate and don a shoe on the L LE, but continues to have difficulty with all ADLs due to increased lymphedema vs the R side. Skilled therapy remains indicated to further reduce edema and continue training pt in independent care of his condition in order to improve overall QOL. Lymphedema Patient Goals Lymphedema Short In 2 wks pt will: Term Patient Goals 1) reduce pain to 2/10 in L foot. 2) Reduce circumferential measurements in L LE by 45 cm . Lymphedema Jail in 4 wks pt will: Patient Goals 1) Reduce circumferential measurements to L LE by 50 cm 2) Be independent with donning/doffing of compression garments 3) be independent with Lymphedema management via HEP 4) Reduce L LE fibrotic edema to none Plan Plan Updated POC sent to provider for their continued input and approval. Continued pt treatment may include any or all of the following interventions in order to improve functional outcomes and aid pt improvement in QOL: Frequency of Therapy 1 x/wk Duration of Therapy 4 wks Therapeutic Exercise Yes Including Home Exercise Program Manual Therapy Yes Techniques Neuromuscular Re- Yes education Therapeutic Yes Activities to Return to Previous Functional/Work Level ADL/Self Care Yes Education Manual Lymphatic Yes Drainage Eval/Re-Eval Yes Time and Billing Re-Eval Time 17 Re-Eval Billing 0 Units Charge for PT No reassessment? PHYSICIAN CERTIFICATION: I certify the specified therapy services for Jonathan Winn are required, authorized, and reviewed every 30 days.
== END 2025-07-01 23:59 | disposition home or self-care (01) ==
LOC: PT 09:00
PROVIDERS: Visit Provider Family Medicine
DX: I89.0 Lymphedema, not elsewhere classified (principal)
CPT/HCPCS: 97140; 97760

== ENCOUNTER 2025-07-15 09:53 | Outpatient (RCR) | payer MEDICAID, SELFPAY | END 2025-07-15 23:59 | disposition home or self-care (01) | LOC: PT 09:53 | PROVIDERS: PCP Family Medicine; Visit Provider Family Medicine | DX: I89.0 Lymphedema, not elsewhere classified (principal); L02.416 Cutaneous abscess of left lower limb | CPT/HCPCS: 97140 ==

== ENCOUNTER 2025-08-13 11:42 | Outpatient (CLI) | payer MEDICAID, SELFPAY ==
[2025-08-13 14:49] LABS: Hematocrit 45.0 % (42.0-52.0); Hemoglobin 14.6 g/dL (14.1-18.0); Immature Granulocytes % 0.4 %; Mean Corpuscular HGB Conc 32.4 g/dL (31.8-35.4); Mean Corpuscular Hemoglobin 27.8 pg (27.0-31.2); Mean Corpuscular Volume 85.6 fl (80-94); Nucleated Red Blood Cells % 0 %; Platelet Count 336 K/mm3 (142-424); Red Blood Count 5.26 M/mm3 (4.60-6.20); Red Cell Distribution Width-SD 40.1 fL; White Blood Count 10.1 K/mm3 (4.8-10.8)
[2025-08-13 15:14] LABS: Alanine Aminotransferase 48 U/L (12-78); Albumin Level 3.5 g/dl (3.5-5.0); Albumin/Globulin Ratio 0.7 (1.1-1.8); Alkaline Phosphatase 123 U/L (38-126); Anion Gap 17.1 mEq/L (5-15); Aspartate Amino Transferase 32 U/L (17-59); Bilirubin,Total 0.3 mg/dl (0.2-1.3); Blood Urea Nitrogen 36 mg/dl (9-20); Calcium 9.9 mg/dl (8.4-10.2); Carbon Dioxide 15 mmol/L (22.0-30.0); Chloride 108 mmol/L (98-107); Cholesterol 269 mg/dl (140-200); Creatinine,Serum 1.10 mg/dl (0.66-1.25); Estimated Glomerular Filt Rate 68 ml/min (>60); GFR (African American) 83 ML/MIN (>60); Globulin 5.1 g/dL (1.3-3.2); Glucose 216 mg/dl (74-100); HDL Cholesterol 32 mg/dl (40-60); Potassium 4.1 mmoL/L (3.5-5.1); Sodium 136 mmol/L (136-145); Total Protein,Serum 8.6 g/dl (6.3-8.2)
[2025-08-13 15:18] LABS: Triglycerides 488 mg/dl (30-150)
[2025-08-13 17:00] LABS: Hemoglobin A1C 8.4 % (4.0-6.0)
== END 2025-08-13 23:59 | disposition home or self-care (01) ==
LOC: LAB.DROPOF 08-15 11:42
PROVIDERS: PCP Family Medicine; Visit Provider Family Medicine
DX: D64.9 Anemia, unspecified (principal); E11.9 Type 2 diabetes mellitus without complications; I10 Essential (primary) hypertension; E78.49 Other hyperlipidemia
CPT/HCPCS: 80053; 80061; 83036; 85025